=== PATIENT | female | born 1930 | race African-American/Black ===

== ENCOUNTER 2016-11-10 10:40 | Observation (INO) | payer MEDICARE ==
[~2016-11-10 10:40] MED LIST: BENZ100 PO; DOCU1CAP39 PO; HYDR-3580 PO; IBUP400 PO; LORTA5 PO; METO25 PO; POLY119S PO; PROT40TA PO; TIMO1SOL6 OP; TRAM50TA PO
[2016-11-10 10:44] VITALS: BP 99/50; PULSE 60; RESP 20; TEMP 97.8; O2SAT 98
[2016-11-10 11:05] VITALS: BP 107/51; PULSE 64; RESP 14; O2SAT 100
--- NOTE | 2016-11-10 11:31 | PD ---
HPI Chief Complaint: Respiratory Symptoms Time Seen by Provider: 11:26 Travel History International Travel<30 days: No Contact w/Intl Traveler<30days: No Traveled to known affect area: No History of Present Illness HPI Patient is a 86 year old female presenting to the emergency department evaluation of shortness of breath and lower extremity edema. Patient also complains of a lesion and itching to her right cheek. Son states that she's been evaluated by a fast food delivery driver the past and it was felt that it was psychological. However there has been increased swelling and redness to the area since yesterday. Patient states that the shortness of breath comes and goes, she states it was worse this morning. They recently traveled from [place] to check on their home here. She denies any calf pain or tenderness, fevers, chills, abdominal pain, chest pain. Patient has a medical history significant for congestive heart failure, hypertension, hyperlipidemia, and dementia. PFSH Past Medical History Arthritis: Yes Blood Disorders: No Heart Rhythm Problems: No Cancer: Yes (LEFT BREAST) Cardiac Catheterization: No High Cholesterol: Yes Congestive Heart Failure: Yes Coronary Artery Disease: Yes Dementia: Yes Diabetes: No Diminished Hearing: No Endocrine: No GERD: Yes Glaucoma: Yes Genitourinary: No Hepatitis: No Hiatal Hernia: No Hypertension: Yes Immune Disorder: No Neurologic: No Reproductive: No Respiratory: No Immunizations Current: Yes Myocardial Infarction: No Pancreatitis: Yes Radiation Therapy: Yes (H/O) Thyroid Disease: No ?: Not Menopausal: Yes Past Surgical History AICD: No Section: Yes Cholecystectomy: Yes Coronary Artery Bypass Graft: No Eye Surgery: Yes (GEETA. CATARACT SX.) Hysterectomy: Yes Joint Replacement: Yes (BOTH KNEES) Pacemaker: No Other Surgery: Yes (LEFT BREAST LUMPECTOMY) Social History Alcohol Use: No Tobacco Use: No Substance Use: No Allergies-Medications (Allergen,Severity, Reaction): Coded Allergies: Rosa (Verified Allergy, Severe, CAN'T RECALL, 11/10/16) Reported Meds & Prescriptions Reported Meds & Active Scripts Active [place] 5/325 (Hydrocodone/Acetaminophen 5/325) 5 mg/325 mg Tab 1 Tab PO Q6H PRN Motrin 400 mg Tab (Ibuprofen) 400 Mg Tab 400 Mg PO Q6H PRN Tessalon Perles (Benzonatate) 100 Mg Cap 200 Mg PO TID PRN 30 Days Hydrocodone/Acetaminophen 7.5 mg/325 mg 1 Tab 1 Tab PO Q4H PRN Tramadol Hcl (Tramadol HCl) 50 Mg Tab 50 Mg PO Q4H PRN Miralax 119 Gm Bottle (Polyethylene Glycol) 119 Gm Powd 17 Gm PO DAILY PRN 17 GRAMS = 1 TABLESPOON DISSOLVED IN 4 TO 8 OUNCES OF BEVERAGE Colace 100 Mg Cap (Docusate Sodium) 100 Mg Cap 100 Mg PO BID 30 Days Reported Protonix (Pantoprazole Sodium) 40 Mg Tabdr 40 Mg PO DAILY Betimol (Timolol Maleate) 0.25 % Bella 0.25 % OP DAILY Metoprolol Tartrate 25 mg (Metoprolol Tartrate) 25 Mg Tab 25 Mg PO BID Review of Systems Except as stated in HPI: all other systems reviewed are Neg Eyes: No: Visual changes HENT: No: Headaches Cardiovascular: Positive: Edema, No: Chest Pain or Discomfort Respiratory: Positive: Shortness of Breath Gastrointestinal: No: Nausea, Vomiting, Abdominal Pain Skin: Positive Itching, Positive Lesions Neurologic: No: Weakness, Dizziness, Syncope, Focal Abnormalities, Change in Mentation Physical Exam Narrative GENERAL: Overweight, well-developed, alert female. Resting in no acute distress. SKIN: Warm and dry. HEAD: Atraumatic. Normocephalic. EYES: Pupils equal and round. No scleral icterus. No injection or drainage. ENT: No nasal bleeding or discharge. Mucous membranes pink and moist. NECK: Trachea midline. No JVD. CARDIOVASCULAR: Regular rate and rhythm. RESPIRATORY: No accessory muscle use. Clear to auscultation. Breath sounds equal bilaterally. GASTROINTESTINAL: Abdomen soft, non-tender, nondistended. Hepatic and splenic margins not palpable. MUSCULOSKELETAL: Extremities without clubbing, cyanosis, trace edema noted to the left foot. No obvious deformities. Positive pedal pulses, negative Homans sign bilaterally. NEUROLOGICAL: Awake and alert. No obvious cranial nerve deficits. Motor grossly within normal limits. Five out of 5 muscle strength in the arms and legs. Normal speech. PSYCHIATRIC: Appropriate mood and affect; insight and judgment normal. Data Data Last Documented VS Vital Signs Date Time Temp Pulse Resp B/P Pulse Ox O2 Delivery O2 Flow Rate FiO2 11/10/16 11:05 64 14 107/51 100 Room Air 11/10/16 10:44 97.8 Orders Complete Blood Count With Diff (11/10/16 11:16) Comprehensive Metabolic Panel (11/10/16 11:16) B-Type Natriuretic Peptide (11/10/16 11:16) Act Partial Throm Time (Ptt) (11/10/16 11:16) Prothrombin Time / Inr (Pt) (11/10/16 11:16) Magnesium (Mg) (11/10/16 11:16) Ckmb (Isoenzyme) Profile (11/10/16 11:16) Troponin I (11/10/16 11:16) Iv Access Insert/Monitor (11/10/16 11:16) Electrocardiogram (11/10/16 11:16) Ecg Monitoring (11/10/16 11:16) Oximetry (11/10/16 11:16) Oxygen Administration (11/10/16 11:16) Chest, Single Ap (11/10/16 11:16) Sodium Chloride 0.9% Flush (Ns Flush) (11/10/16 11:30) Wound Culture And Gram Stain (11/10/16 11:16) Diet Heart Healthy (11/10/16 Lunch) Vital Signs (Adult) KJ.Q4H (11/10/16 13:58) Basic Metabolic Panel (Bmp) (11/11/16 06:00) Ondansetron Inj (Zofran Inj) (11/10/16 14:00) Acetaminophen (Tylenol) (11/10/16 14:00) Resp Oxygen David C Titrat 1-4 L (11/10/16 ) Admit Order (Ed Use Only) (11/10/16 14:00) Sulfamet-Trimeth Ds 800-160 Mg (Bactrim (11/10/16 14:00) Mupirocin 2% Oint (Bactroban 2% Oint) (11/10/16 14:00) Labs Laboratory Tests Test 11/10/16 11:55 White Blood Count 7.0 TH/MM3 Red Blood Count 4.30 MIL/MM3 Hemoglobin 11.9 GM/DL Hematocrit 35.9 % Mean Corpuscular Volume 83.4 FL Mean Corpuscular Hemoglobin 27.8 PG Mean Corpuscular Hemoglobin 33.3 % Concent Red Cell Distribution Width 14.9 % Platelet Count 185 TH/MM3 Mean Platelet Volume 8.2 FL Neutrophils (%) (Auto) 78.6 % Lymphocytes (%) (Auto) 10.4 % Monocytes (%) (Auto) 8.7 % Eosinophils (%) (Auto) 1.7 % Basophils (%) (Auto) 0.6 % Neutrophils # (Auto) 5.5 TH/MM3 Lymphocytes # (Auto) 0.7 TH/MM3 Monocytes # (Auto) 0.6 TH/MM3 Eosinophils # (Auto) 0.1 TH/MM3 Basophils # (Auto) 0.0 TH/MM3 CBC Comment DIFF FINAL Differential Comment Prothrombin Time 11.4 SEC Prothromb Time International 1.0 RATIO Ratio Activated Partial 28.5 SEC Thromboplast Time Sodium Level 141 MEQ/L Potassium Level 4.0 MEQ/L Chloride Level 103 MEQ/L Carbon Dioxide Level 27.7 MEQ/L Anion Gap 10 MEQ/L Blood Urea Nitrogen 42 MG/DL Creatinine 1.86 MG/DL Estimat Glomerular Filtration 31 ML/MIN Rate Random Glucose 95 MG/DL Calcium Level 9.2 MG/DL Magnesium Level 2.0 MG/DL Total Bilirubin 0.7 MG/DL Aspartate Amino Transf 19 U/L (AST/SGOT) Alanine Aminotransferase 12 U/L (ALT/SGPT) Alkaline Phosphatase 87 U/L Total Creatine Kinase 78 U/L Troponin I 0.26 NG/ML B-Type Natriuretic Peptide 607 PG/ML Total Protein 7.5 GM/DL Albumin 3.0 GM/DL MDM Medical Decision Making Medical Screen Exam Complete: Yes Emergency Medical Condition: Yes Interpretation(s) Last Impressions Chest X-Ray 11/10/16 1116 Signed Impressions: Service Date/Time: Thursday, November 10, 2016 11:29 - CONCLUSION: Mild cardiomegaly. Onel Long Jr., MD Laboratory Tests Test 11/10/16 11:55 White Blood Count 7.0 TH/MM3 Red Blood Count 4.30 MIL/MM3 Hemoglobin 11.9 GM/DL Hematocrit 35.9 % Mean Corpuscular Volume 83.4 FL Mean Corpuscular Hemoglobin 27.8 PG Mean Corpuscular Hemoglobin 33.3 % Concent Red Cell Distribution Width 14.9 % Platelet Count 185 TH/MM3 Mean Platelet Volume 8.2 FL Neutrophils (%) (Auto) 78.6 % Lymphocytes (%) (Auto) 10.4 % Monocytes (%) (Auto) 8.7 % Eosinophils (%) (Auto) 1.7 % Basophils (%) (Auto) 0.6 % Neutrophils # (Auto) 5.5 TH/MM3 Lymphocytes # (Auto) 0.7 TH/MM3 Monocytes # (Auto) 0.6 TH/MM3 Eosinophils # (Auto) 0.1 TH/MM3 Basophils # (Auto) 0.0 TH/MM3 CBC Comment DIFF FINAL Differential Comment Prothrombin Time 11.4 SEC Prothromb Time International 1.0 RATIO Ratio Activated Partial 28.5 SEC Thromboplast Time Sodium Level 141 MEQ/L Potassium Level 4.0 MEQ/L Chloride Level 103 MEQ/L Carbon Dioxide Level 27.7 MEQ/L Anion Gap 10 MEQ/L Blood Urea Nitrogen 42 MG/DL Creatinine 1.86 MG/DL Estimat Glomerular Filtration 31 ML/MIN Rate Random Glucose 95 MG/DL Calcium Level 9.2 MG/DL Magnesium Level 2.0 MG/DL Total Bilirubin 0.7 MG/DL Aspartate Amino Transf 19 U/L (AST/SGOT) Alanine Aminotransferase 12 U/L (ALT/SGPT) Alkaline Phosphatase 87 U/L Total Creatine Kinase 78 U/L Troponin I 0.26 NG/ML B-Type Natriuretic Peptide 607 PG/ML Total Protein 7.5 GM/DL Albumin 3.0 GM/DL Vital Signs Date Time Temp Pulse Resp B/P Pulse Ox O2 Delivery O2 Flow Rate FiO2 11/10/16 11:05 64 14 107/51 100 Room Air 11/10/16 10:44 97.8 60 20 99/50 98 Room Air Differential Diagnosis Congestive heart failure versus dependent edema versus abscess versus cellulitis versus impetigo versus other Narrative Course Patient is an 86 -year-old female presenting for evaluation of shortness of breath and bilateral lower extremity edema. Additionally she complained of a lesion to the right face that has gotten worse over the last 24 hours. Patient is a history of dementia, some corroborates her story regarding the skin lesion. Patient's vital signs are stable, she is well oxygenated on room air. There is trace edema noted to his left foot, negative Homans sign bilaterally. Patient's lungs are clear auscultation. We'll I&D the abscess to her left cheek. Cultures ordered. Please see procedure report I&D. Patient was given a dose of Bactrim and mupirocin ointment was ordered., Patient has several scabbed lesions to the side of her right scalp, this appears most consistent with impetigo. CBC is unremarkable, troponin 0.26, BNP 607, BUN and creatinine elevated 42/ 1.86. Chest x-ray shows cardiomegaly. Due to the elevated troponin and BNP patient will be kept under observation. Discussed with Dr. Jimenez who accepted admission, orders placed. Patient and son agreeable. Procedures Procedure Narrative After the risks and benefits were discussed the following procedure was performed: INCISION AND DRAINAGE OF ABSCESS: The area was prepped and was sterilely draped. A subcutaneous wheal of 1 % Xylocaine with a total number 1 mL was used to anesthetize the area. The area was properly anesthetized. A number 11 scalpel was used to make a 1 -cm incision across the area of the abscess. Cultures were obtained. The abscess was drained an irrigated with normal saline. A single Vicryl suture was placed to approximate incision. Diagnosis Primary Impression: CHF (congestive heart failure) Qualified Code: I50.9 - Congestive heart failure, unspecified congestive heart failure chronicity, unspecified congestive heart failure type Additional Impressions: Impetigo Abscess Status post incision and drainage Admitting Information Admitting Physician Requests: Observation Condition: Stable Irasema Cadet Nov 10, 2016 11:31
[2016-11-10 12:35] LABS: AUTOMATED NEUTROPHIL # 5.5 TH/MM3 (1.8-7.7); BASOPHIL % 0.6 % (0.0-2.0); EOSINOPHIL # 0.1 TH/MM3 (0-0.4); EOSINOPHIL % 1.7 % (0.0-4.0); HEMATOCRIT 35.9 % (35.0-46.0); HEMO FLAGS DIFF FINAL; LYMPH % 10.4 % (9.0-44.0); LYMPHOCYTE # 0.7 TH/MM3 (1.0-4.8); MEAN CELL VOLUME 83.4 FL (80.0-100.0); MEAN CORPUSCULAR HEMOGLOBIN 27.8 PG (27.0-34.0); MEAN CORPUSCULAR HGB CONC 33.3 % (32.0-36.0); MONO % 8.7 % (0.0-8.0); NEUT % 78.6 % (16.0-70.0); PLATELET COUNT 185 TH/MM3 (150-450); RED CELL DISTRIBUTION WIDTH 14.9 % (11.6-17.2)
[2016-11-10 12:46] LABS: APTT (PATIENT) 28.5 SEC (24.3-30.1); PROTHROMBIN TIME - PATIENT 11.4 SEC (9.8-11.6)
--- NOTE | 2016-11-10 12:46 | RADRPT ---
EXAM DATE/TIME: 11/10/2016 11:29 [facility] COMPARISON: CHEST SINGLE AP, January 26, 2015, 11:04. INDICATIONS : Short of breath. MEDICAL HISTORY : None. SURGICAL HISTORY : None. ENCOUNTER: Initial ACUITY: 2 days PAIN SCORE: 0/10 LOCATION: Bilateral chest FINDINGS: A single view of the chest demonstrates the lungs to be symmetrically aerated without evidence of mas s, infiltrate or effusion. Mild cardiomegaly without pulmonary vascular engorgement. Osseous structu res are intact. CONCLUSION: Mild cardiomegaly. Onel Long Jr., MD on November 10, 2016 at 12:44 Board Certified Radiologist. This report was verified electronically.
[2016-11-10 12:58] LABS: ALT (GPT) 12 U/L (10-53); ANION GAP 10 MEQ/L (5-15); AST (GOT) 19 U/L (15-37); BICARBONATE 27.7 MEQ/L (21.0-32.0); BLOOD UREA NITROGEN 42 MG/DL (7-18); CHLORIDE 103 MEQ/L (98-107); GLOMERULAR FILTRATION RATE 31 ML/MIN (>89); SODIUM (NA) 141 MEQ/L (136-145)
[2016-11-10 13:01] LABS: ALKALINE PHOSPHATASE 87 U/L (45-117); TOTAL BILIRUBIN ADULT 0.7 MG/DL (0.2-1.0)
[2016-11-10 13:02] LABS: CREATINE KINASE 78 U/L (26-192)
[2016-11-10] MEDS ORDERED: ONDANSETRON HCL 4 MG/2 ML VIAL IV PUSH PRN (14:00)
[2016-11-10] MEDS ORDERED: ACETAMINOPHEN 325 MG TAB PO PRN (14:00)
[2016-11-10] MEDS ORDERED: SULFAMETHOXAZOLE-TRIMETHOPRIM DS 800-160 MG TAB PO ONE (14:00)
--- NOTE | 2016-11-10 14:23 | HHI.HP ---
[facility]Staff Admission Diagnosis CHF, KALA, ELEVATED TROPONIN Diagnoses: (1) CHF (congestive heart failure) Diagnosis: Principal Chief Complaint: shortness of breath Travel History International Travel<30 Days: No Contact w/Intl Traveler <30 Da: No Traveled to Known Affected Are: No History of Present Illness patient is a 86 y/o female with history of hypertension and CHF who presented to ER with sob and swelling of the legs. patient is not a good historian but she says that she's had this sob for a while. she denies any PND,orthopnea or chest pain but she reports worsening swelling of the legs along with ' some weight gain. she also says that she had a lesion on the right face which has been going on for a few months but it seems that it's been getting worse recently. she denies any fever or chills. Review of Systems Constitutional: DENIES: Fever, Weight loss, Chills, Night Sweats Eyes: DENIES: Blurred vision, Diplopia, Vision loss, Double Vision Ears, nose, mouth, throat: DENIES: Tinnitus, Vertigo, Throat pain, Epistaxis Respiratory: COMPLAINS OF: Shortness of breath, DENIES: Apneas, Cough, Snoring , Wheezing, Hemoptysis, Sputum production Cardiovascular: COMPLAINS OF: Lower Extremity Edema, DENIES: Chest pain, Palpitations, Syncope, Dyspnea on Exertion, PND, Orthopnea, Claudication Gastrointestinal: DENIES: Abdominal pain, Black stools, Bloody stools, Constipation, Diarrhea, Nausea, Vomiting, Difficulty Swallowing, Anorexia Genitourinary: DENIES: Urinary frequency, Urgency, Hematuria, Dysuria Musculoskeletal: DENIES: Joint pain, Muscle aches, Stiffness, Joint Swelling Integumentary: DENIES: Rash Neurologic: DENIES: Abnormal gait, Headache, Localized weakness, Paresthesias, Seizures, Speech Problems, Tremor, Poor Balance Psychiatric: DENIES: Anxiety, Confusion, Mood changes, Depression, Hallucinations, Agitation, Suicidal Ideation, Homicidal Ideation, Delusions Past Family Social History Past Medical History hypertension cataract CHF Past Surgical History cholecystectomy hysterectomy Reported Medications [place] 5/325 (Hydrocodone/Acetaminophen 5/325) 5 mg/325 mg Tab 1 Tab PO Q6H PRN Motrin 400 mg Tab (Ibuprofen) 400 Mg Tab 400 Mg PO Q6H PRN Tessalon Perles (Benzonatate) 100 Mg Cap 200 Mg PO TID PRN 30 Days Hydrocodone/Acetaminophen 7.5 mg/325 mg 1 Tab 1 Tab PO Q4H PRN Tramadol Hcl (Tramadol HCl) 50 Mg Tab 50 Mg PO Q4H PRN Miralax 119 Gm Bottle (Polyethylene Glycol) 119 Gm Powd 17 Gm PO DAILY PRN 17 GRAMS = 1 TABLESPOON DISSOLVED IN 4 TO 8 OUNCES OF BEVERAGE Colace 100 Mg Cap (Docusate Sodium) 100 Mg Cap 100 Mg PO BID 30 Days Reported Protonix (Pantoprazole Sodium) 40 Mg Tabdr 40 Mg PO DAILY Betimol (Timolol Maleate) 0.25 % Bella 0.25 % OP DAILY Metoprolol Tartrate 25 mg (Metoprolol Tartrate) 25 Mg Tab 25 Mg PO BID Allergies: Coded Allergies: Rosa (Verified Allergy, Severe, CAN'T RECALL, 11/10/16) Active Ordered Medications Current Medications Sodium Chloride (NS Flush) 2 ml UNSCH PRN IVF FLUSH AFTER USING IV ACCESS; Start 11/10/16 at 11:30 Ondansetron HCl (Zofran Inj) 4 mg Q8HR PRN IV PUSH NAUSEA; Start 11/10/16 at 14 :00; Status UNV Acetaminophen (Tylenol) 650 mg Q4H PRN PO FEVER; Start 11/10/16 at 14:00; Status UNV Trimethoprim/ Sulfamethoxazole (Bactrim Ds 800-160 Mg) 1 tab ONCE ONCE PO ; Start 11/10/16 at 14:00; Stop 11/10/16 at 14:04; Status DC Mupirocin (Bactroban 2% Oint) 1 applic Q12HR TOPICAL ; Start 11/10/16 at 14:00 Family History not relevant to this admission. Social History quit smoking and drinking years ago. Physical Exam Vital Signs Vital Signs Date Time Temp Pulse Resp B/P Pulse Ox O2 Delivery O2 Flow Rate FiO2 11/10/16 11:05 64 14 107/51 100 Room Air 11/10/16 10:44 97.8 60 20 99/50 98 Room Air Physical Exam GENERAL: This is a well-nourished, well-developed patient, in no apparent distress. SKIN: s/p I/D of the lesion on the right face HEAD: Atraumatic. Normocephalic. No temporal or scalp tenderness. EYES: Pupils equal round and reactive. Extraocular motions intact. No scleral icterus. No injection or drainage. ENT: Nose without bleeding, purulent drainage or septal hematoma. Throat without erythema, tonsillar hypertrophy or exudate. Uvula midline. Airway patent. NECK: Trachea midline. No JVD or lymphadenopathy. Supple, nontender, no meningeal signs. CARDIOVASCULAR: Regular rate and rhythm without murmurs, gallops, or rubs. RESPIRATORY: Clear to auscultation. Breath sounds equal bilaterally. No wheezes , rales, or rhonchi. GASTROINTESTINAL: Abdomen soft, non-tender, nondistended. No hepato-splenomegaly , or palpable masses. No guarding. MUSCULOSKELETAL: Extremities with bilateral pedal edema. NEUROLOGICAL: Awake and alert. Cranial nerves II through XII intact. Motor and sensory grossly within normal limits. Five out of 5 muscle strength in all muscle groups. Normal speech. Laboratory Laboratory Tests Test 11/10/16 11:55 White Blood Count 7.0 Red Blood Count 4.30 Hemoglobin 11.9 Hematocrit 35.9 Mean Corpuscular Volume 83.4 Mean Corpuscular Hemoglobin 27.8 Mean Corpuscular Hemoglobin 33.3 Concent Red Cell Distribution Width 14.9 Platelet Count 185 Mean Platelet Volume 8.2 Neutrophils (%) (Auto) 78.6 Lymphocytes (%) (Auto) 10.4 Monocytes (%) (Auto) 8.7 Eosinophils (%) (Auto) 1.7 Basophils (%) (Auto) 0.6 Neutrophils # (Auto) 5.5 Lymphocytes # (Auto) 0.7 Monocytes # (Auto) 0.6 Eosinophils # (Auto) 0.1 Basophils # (Auto) 0.0 CBC Comment DIFF FINAL Differential Comment Prothrombin Time 11.4 Prothromb Time International 1.0 Ratio Activated Partial 28.5 Thromboplast Time Sodium Level 141 Potassium Level 4.0 Chloride Level 103 Carbon Dioxide Level 27.7 Anion Gap 10 Blood Urea Nitrogen 42 Creatinine 1.86 Estimat Glomerular Filtration 31 Rate Random Glucose 95 Calcium Level 9.2 Magnesium Level 2.0 Total Bilirubin 0.7 Aspartate Amino Transf 19 (AST/SGOT) Alanine Aminotransferase 12 (ALT/SGPT) Alkaline Phosphatase 87 Total Creatine Kinase 78 Troponin I 0.26 B-Type Natriuretic Peptide 607 Total Protein 7.5 Albumin 3.0 Date/Time Procedure Status Source Growth 11/10/16 12:12 Gram Stain Received Wound Face Pending 11/10/16 12:12 Wound Culture Received Wound Face Pending Result Diagram: 11/10/16 1155 11/10/16 1155 Imaging Last Impressions Chest X-Ray 11/10/16 1116 Signed Impressions: Service Date/Time: Thursday, November 10, 2016 11:29 - CONCLUSION: Mild cardiomegaly. Onel Long Jr., MD EKG; sinus bradycardia with LAD Assessment and Plan Assessment and Plan A/P - CHF- acute on chronic diastolic start IV diuretic and monitor I/O- check echo- -mildly elevated troponin- likely due to CHF and renal insufficiency- denies any chest pain with no ST-T changes on EKG start aspirin-trend the cardiac enzymes- continue BB -abscess of the right face- s/p I/D in ER- check soft tissue sonogram- continue antibiotic- follow the culture -hypertension; resume BB- will monitor -renal insufficiency - likely chronic - will monitor -DVT prophylaxis with SCD's -consult PT Discussed Condition With ER and the patient. Problem Qualifiers (1) CHF (congestive heart failure): Qualified Code: I50.9 - Congestive heart failure, unspecified congestive heart failure chronicity, unspecified congestive heart failure type Bree Jimenez MD Nov 10, 2016 14:23
[2016-11-10] MEDS: MUPIROCIN 2% OINT 22 GM TUBE TOPICAL SCH ×2 (14:55→23:11)
[2016-11-10 14:59] VITALS: BP 125/78; PULSE 67; RESP 20; O2SAT 100
--- NOTE | 2016-11-10 15:34 | RADRPT ---
EXAM DATE/TIME: 11/10/2016 14:22 [facility] COMPARISON: No previous studies available for comparison. INDICATIONS : Abscess right side of face. MEDICAL HISTORY : Dementia. Congestive heart failure. Hypercholesterolemia. HTN. Pancreatitis. Breast cancer. Dyspnea. Glaucoma. Coronary artery disease. Arthritis.GERD. SURGICAL HISTORY : Hysterectomy. section. Cholecystectomy. Bilateral total knee replacement. Lumpectomy. ENCOUNTER: Initial ACUITY: 2 weeks PAIN SCORE: 2/10 LOCATION: Right face. AREA EVALUATED: Right lateral side of face. FINDINGS: The exam demonstrates an ill-defined fluid collection measuring 1.8 x 1.9-0.7 CM. The appropriate cli nical setting this could represent a small area of abscess. There is induration of the tissue surroun ding this. CONCLUSION: 1. Possible small abscess in the right face as described above. Néstor Carrillo MD on November 10, 2016 at 15:03 Board Certified Radiologist. This report was verified electronically.
--- NOTE | 2016-11-10 16:16 | EKG ---
Date Performed: 11/10/2016 Time Performed: 11:29:14 PTAGE: 86 years EKG: SINUS BRADYCARDIA MARKED LEFT AXIS DEVIATION NONSPECIFIC T-WAVE ABNORMALITY ABNORMAL ECG PREVIOUS TRACING : 01/26/2015 09.33 Compared to prior tracing no significant change DOCTOR: Enrrique Garcia Interpretating Date/Time 11/10/2016 16:15:27
[2016-11-10] MEDS: ASPIRIN EC 81 MG TABEC PO SCH (16:21)
[2016-11-10] MEDS: POTASSIUM CHLORIDE 20 MEQ CONTROLLED RELEASE TAB PO SCH (16:21)
[2016-11-10] MEDS: FUROSEMIDE 40 MG/4 ML VIAL IV PUSH SCH (16:21)
[2016-11-10] MEDS ORDERED: CLINDAMYCIN 150 MG CAP PO SCH (18:00)
[2016-11-10] MEDS: CLINDAMYCIN INJ 600 MG in SODIUM CHLORIDE 0.9% INJ 100 ML IV SCH (18:26)
--- NOTE | 2016-11-10 20:54 | RADRPT ---
EXAM DATE/TIME: 11/10/2016 20:00 [facility] COMPARISON: ULTRASOUND SOFT TISSUE, November 10, 2016, 14:22. INDICATIONS : Evaluate abscess looking area infront of right ear. RADIATION DOSE: 56.76 CTDIvol (mGy) MEDICAL HISTORY : Dementia. Cardiovascular disease Hypertension.Pancreatitis,breast ca SURGICAL HISTORY : Hysterectomy. lumpectomy ENCOUNTER: Initial ACUITY: 3 days PAIN SCORE: 3/10 LOCATION: Right facial TECHNIQUE: Volumetric scanning of the facial bones was performed. Using automated exposure control and adjustme nt of the mA and/or kV according to patient size, radiation dose was kept as low as reasonably achiev able to obtain optimal diagnostic quality images. DICOM format image data is available electronicall y for review and comparison. FINDINGS: Study was done without intravenous contrast. There is induration over the right face with very minim al subcutaneous induration evident. This does not look as bad as the ultrasound would suggest. There is no significant adenopathy. CONCLUSION: There is no significant abscess by CT in spite of the ultrasound findings. Surjit Carrillo MD FACR on November 10, 2016 at 20:50 Board Certified Radiologist. This report was verified electronically.
[2016-11-10] MEDS: METOPROLOL TARTRATE 25 MG TAB PO SCH (21:48)
[2016-11-11] VITALS (7 sets, daily range): BP systolic 90–120; BP diastolic 53–69; PULSE 54–68; RESP 14–18; TEMP 97.5–98.6; O2SAT 96–100
[2016-11-11] MEDS: CLINDAMYCIN INJ 600 MG in SODIUM CHLORIDE 0.9% INJ 100 ML IV SCH ×3 (01:54→17:33)
--- NOTE | 2016-11-11 08:30 | MB ---
cc: KATINA GLASGOW DMD DATE OF CONSULTATION: November 10, 2016 REASON FOR CONSULTATION Edema right face. HISTORY OF PRESENT ILLNESS This is an 86-year-old pleasant female who presented to the ER with complaint of shortness of breath and swelling to the legs. But also she indicates to me now that she has this lesion area edema on the right side of her face which has been there for about a month. She reports that it has been recently incised and drained. Denies any fever, chills, nausea, vomiting, shortness of breath and difficulty breathing or swallowing. PAST MEDICAL HISTORY Past medical history is hypertension and congestive heart failure. PAST SURGICAL HISTORY Past surgical history is hysterectomy, cholecystectomy. MEDICATIONS As per report: 1. Colace. 2. MiraLax. 3. Tramadol. 4. Hydrocodone. 5. Tessalon. 6. Motrin 800 mg. 7. Lake 5/325. 8. Protonix. 9. Betimol. 10. Metoprolol. ALLERGIES CALAN. PHYSICAL EXAMINATION VITAL SIGNS: As of this morning temperature is 97.8, pulse is 67, respiratory rate 20, blood pressure is 125/70 with oxygen saturation of 100%. She has a dressing on the right side of the face region anterior to the temporomandibular joint right on the zygomatic arch. This area has slightly mild edema mostly covered by normal mucosa, brownish in color, round, well-circumscribed, mildly raised. I can see the area where the incision was made for the incision drainage. There is no active drainage that is noted at this point. A little crusty appearance that was also noted on there. No tenderness to palpation. No drainable collection that I can palpate at this point. It is about a centimeter and half round. She also has some scabs on the right supraorbital region. She reports that she has been getting creams to treat all these from a doctor, possibly a machine taper. LABORATORY DATA White count is 7.0 with an H&H of 11.9 and 35.5 with platelets of 185. IMAGING STUDIES Awaiting for the CT scan of the facial bones to be done. IMPRESSION AND PLAN This is a 86-year-old female, with at least a one month history of this area, some edema on the right zygomatic arch region towards the temporomandibular joint, is well-circumscribed. There is I&D this afternoon in the ED. Cultures are pending. We will await for the CT scan of the facial bones to evaluate further. Differential diagnosis could be infectious versus neoplastic, possible basal cell carcinoma versus any other malignancy, possible MRSA. No ulcerations that is noted on that. No white count. She is comfortable and stable at this point. Katina Glasgow DMD TREER/TLL /7:41 PM /8:14 AM
[2016-11-11 08:39] LABS: BICARBONATE 28.4 MEQ/L (21.0-32.0)
[2016-11-11] MEDS ORDERED: TIMOLOL 0.25% OTHER SCH (09:00)
[2016-11-11] MEDS: FUROSEMIDE 40 MG/4 ML VIAL IV PUSH SCH (09:02)
[2016-11-11] MEDS: ASPIRIN EC 81 MG TABEC PO SCH (09:02)
[2016-11-11] MEDS: SODIUM CHLORIDE 0.9% FLUSH 10 ML FLUSH IVF PRN (09:02)
[2016-11-11] MEDS: MUPIROCIN 2% OINT 22 GM TUBE TOPICAL SCH ×2 (09:02→22:21)
[2016-11-11] MEDS: METOPROLOL TARTRATE 25 MG TAB PO SCH ×2 (09:02→21:43)
[2016-11-11] MEDS: PANTOPRAZOLE SOD 40 MG DELAYED RELEASE TAB PO SCH (09:02)
[2016-11-11] MEDS: POTASSIUM CHLORIDE 20 MEQ CONTROLLED RELEASE TAB PO SCH (09:02)
--- NOTE | 2016-11-11 09:47 | HHI.PR ---
Subjective Remarks resting comfortably with no distress. no sob. swelling of the legs seems to be improving. no fever. no other complaints. Objective Vitals Vital Signs Date Time Temp Pulse Resp B/P Pulse Ox O2 Delivery O2 Flow Rate FiO2 11/11/16 08:51 97.5 68 18 111/60 100 11/11/16 07:45 21 11/11/16 03:53 97.8 54 17 90/53 98 11/11/16 00:45 98.6 57 17 101/58 96 11/10/16 17:05 21 11/10/16 14:59 67 20 125/78 100 Room Air 11/10/16 11:05 64 14 107/51 100 Room Air 11/10/16 10:44 97.8 60 20 99/50 98 Room Air Result Diagram: 11/10/16 1155 11/11/16 0712 Imaging Last Impressions Chest X-Ray 11/10/16 1116 Signed Impressions: Service Date/Time: Thursday, November 10, 2016 11:29 - CONCLUSION: Mild cardiomegaly. Onel Long Jr., MD Soft Tissue Ultrasound 11/10/16 0000 Signed Impressions: Service Date/Time: Tuesday, November 10, 2016 14:22 - CONCLUSION: 1. Possible small abscess in the right face as described above. Néstor Carrillo MD Maxillofacial CT 11/10/16 0000 Signed Impressions: Service Date/Time: Thursday, November 10, 2016 20:00 - CONCLUSION: There is no significant abscess by CT in spite of the ultrasound findings. Surjit Carrillo MD FACR Objective Remarks GENERAL: This is a well-nourished, well-developed patient, in no apparent distress. CARDIOVASCULAR: Regular rate and regular rhythm without murmurs, gallops, or rubs. RESPIRATORY: Clear to auscultation. Breath sounds equal bilaterally. No wheezes , rales, or rhonchi. GASTROINTESTINAL: Abdomen soft, non-tender, nondistended. Normal, active bowel sounds MUSCULOSKELETAL: Extremities with mild bilateral pedal edema. NEURO: Alert & Oriented x4 to person, place, time, situation. Moves all ext x4 Procedures none Medications and IVs Current Medications Sodium Chloride (NS Flush) 2 ml UNSCH PRN IVF FLUSH AFTER USING IV ACCESS Last administered on 11/11/16t 09:02; Start 11/10/16 at 11:30 Ondansetron HCl (Zofran Inj) 4 mg Q8HR PRN IV PUSH NAUSEA; Start 11/10/16 at 14 :00 Acetaminophen (Tylenol) 650 mg Q4H PRN PO FEVER; Start 11/10/16 at 14:00 Trimethoprim/ Sulfamethoxazole (Bactrim Ds 800-160 Mg) 1 tab ONCE ONCE PO Last administered on 11/10/16 14:43; Start 11/10/16 at 14:00; Stop 11/10/16 at 14:04; Status DC Mupirocin (Bactroban 2% Oint) 1 applic Q12HR TOPICAL Last administered on 09:02; Start 11/10/16 at 14:00 Furosemide (Lasix Inj) 40 mg DAILY IV PUSH Last administered on 11/11/16 09:02 ; Start 11/10/16 at 15:00 Potassium Chloride (KCl) 20 meq DAILY PO Last administered on 11/11/16 09:02; Start 11/10/16 at 15:00 Metoprolol Tartrate (Lopressor) 25 mg BID PO Last administered on 11/11/16 09: 02; Start 11/10/16 at 21:00 Pantoprazole Sodium (Protonix) 40 mg DAILY PO Last administered on 11/11/16 09 :02; Start 11/11/16 at 09:00 Patient Own Medication PT OWN MED: DOROTHY... DAILY OTHER ; Start 11/11/16 at 09:00 ; Status Hold Clindamycin HCl (Cleocin) 300 mg Q6HR PO ; Start 11/10/16 at 18:00; Stop at 18:00; Status DC Aspirin 162 mg 162 mg DAILY PO Last administered on 11/11/16 09:02; Start 04/17 at 15:00 Clindamycin Phosphate/Sodium Chloride (Cleocin Inj/NS Inj) 104 ml @ 208 mls/hr Q8H IV Last administered on 11/11/16 01:54; Start 11/10/16 at 18:00 A/P Assessment and Plan A/P - CHF- acute on chronic diastolic continue IV diuretic and monitor I/O- check echo- -mildly elevated troponin- likely due to CHF and renal insufficiency- denies any chest pain with no ST-T changes on EKG start aspirin- the cardiac enzymes trend stable- continue BB -abscess of the right face- s/p I/D in ER- continue antibiotic- follow the culture CT of the face with no abscess- facial surgery evaluation appreciated. -hypertension; resumed BB- will monitor -renal insufficiency - likely chronic - will monitor -DVT prophylaxis with SCD's -consulted PT Discharge Planning possible dc home tomorrow if stable-pending the echo and PT evaluation. Bree Jimenez MD Nov 11, 2016 09:47
--- NOTE | 2016-11-11 19:49 | HHI.PR ---
Subjective Remarks pt seen and examined earlier this evening AAOx3, NAD no complaints pt has removed her wig and keeps scratching various areas of would/scabs on her head, especially her right side pt reports areas of head/face been there for a long time Objective Vital Signs Date Time Temp Pulse Resp B/P Pulse Ox O2 Delivery O2 Flow Rate FiO2 11/11/16 14:51 98.0 60 16 120/69 100 11/11/16 11:30 98.4 56 14 114/57 96 11/11/16 08:51 97.5 68 18 111/60 100 11/11/16 07:45 21 11/11/16 03:53 97.8 54 17 90/53 98 11/11/16 00:45 98.6 57 17 101/58 96 I/O 11/10/16 11/10/16 11/10/16 11/11/16 11/11/16 11/11/16 07:00 15:00 23:00 07:00 15:00 23:00 Intake Total 1228 ml 458 ml Balance 1228 ml 458 ml Intake Oral 960 ml 240 ml IV Total 268 ml 218 ml # Voids 4 1 # Bowel Movements 1 1 Result Diagram: 11/10/16 1155 11/11/16 0712 Other Results GRAM STAIN Final 11/10/16 MODERATE WBC'S FEW EPITHELIAL CELLS MODERATE GRAM POSITIVE COCCI IN PAIRS AND CLUSTERS WOUND CULTURE Preliminary 11/11/16 HEAVY GROWTH STAPH SP COAGULASE POSITIVE - ID AND LYSSA TO FOLLOW Objective Remarks right face, area over the zygomatic arch - stable no discharge noted previous i&d area stable, no tenderness, no drainable collection right scalp/head area of scabs/ old and new with area of skin missing - appears due to continued scratching, ct face - no drainable collection - area of opacity note -same area of previous i&d; well circumscribed - appears to be "walled off" Assessment and Plan Assessment and Plan s/p being admitted for sob, lesions, infection head face GRAM STAIN Final right face MODERATE WBC'S FEW EPITHELIAL CELLS MODERATE GRAM POSITIVE COCCI IN PAIRS AND CLUSTERS WOUND CULTURE Preliminary 11/11/16 HEAVY GROWTH STAPH SP COAGULASE POSITIVE - ID AND LYSSA TO FOLLOW ok to d/c to home from OMS standpoint pt can follow up dr glasgow - outpatient - call [phone] when discharged d/w dr godinez - possible infectious vs inflammatory condition advise dermatology consult, Infectious disease consult - possible, fungal, infectious, parasitic, areas oms signing off, recall as required. Vinh Glasgow DMD Nov 11, 2016 19:49
[2016-11-12] VITALS (8 sets, daily range): BP systolic 94–125; BP diastolic 55–64; PULSE 53–70; RESP 14–17; TEMP 97.8–98.9; O2SAT 96–100
[2016-11-12] MEDS: CLINDAMYCIN INJ 600 MG in SODIUM CHLORIDE 0.9% INJ 100 ML IV SCH ×2 (01:51→10:22)
[2016-11-12] MEDS: SODIUM CHLORIDE 0.9% FLUSH 10 ML FLUSH IVF PRN (01:51)
--- NOTE | 2016-11-12 09:42 | HHI.FF ---
Face to Face Verification Diagnosis: (1) Status post incision and drainage (2) CHF (congestive heart failure) Physical Therapy Order: Evaluate and Treat Home Health Nursing Order: Medical education Signs/symptoms of disease process I have seen patient Chloe Ritchie on 11/12/16. My clinical findings support the need for the requested home health care services because: Patient has SOB I certify that my clinical findings support that this patient is homebound because: Poor cardiac reserve Bree Jimenez MD Nov 12, 2016 09:42
--- NOTE | 2016-11-12 09:42 | HHI.PR ---
Subjective Remarks in no acute distress. no sob or chest pain. afebrile. complaining of pain to the left knee with decrease in ROM. Objective Vitals Vital Signs Date Time Temp Pulse Resp B/P Pulse Ox O2 Delivery O2 Flow Rate FiO2 11/12/16 08:48 98.5 65 16 125/59 96 11/12/16 05:10 98.3 61 17 105/62 99 11/12/16 00:14 98.0 62 17 110/64 99 11/11/16 20:26 98 11/11/16 19:49 98.6 65 18 111/54 100 11/11/16 14:51 98.0 60 16 120/69 100 11/11/16 11:30 98.4 56 14 114/57 96 I/O 11/11/16 11/11/16 11/11/16 11/12/16 11/12/16 11/12/16 07:00 15:00 23:00 07:00 15:00 23:00 Intake Total 1228 ml 558 ml 100 ml Balance 1228 ml 558 ml 100 ml Intake Oral 960 ml 340 ml IV Total 268 ml 218 ml 100 ml # Voids 4 2 1 # Bowel Movements 1 1 Result Diagram: 11/10/16 1155 11/11/16 0712 Imaging Last Impressions Chest X-Ray 11/10/16 1116 Signed Impressions: Service Date/Time: Thursday, November 10, 2016 11:29 - CONCLUSION: Mild cardiomegaly. Onel Long Jr., MD Soft Tissue Ultrasound 11/10/16 0000 Signed Impressions: Service Date/Time: Thursday, November 10, 2016 14:22 - CONCLUSION: 1. Possible small abscess in the right face as described above. Néstor Carrillo MD Maxillofacial CT 11/10/16 0000 Signed Impressions: Service Date/Time: Thursday, November 10, 2016 20:00 - CONCLUSION: There is no significant abscess by CT in spite of the ultrasound findings. Surjit Carrillo MD FACR Objective Remarks GENERAL: This is a well-nourished, well-developed patient, in no apparent distress. CARDIOVASCULAR: Regular rate and regular rhythm without murmurs, gallops, or rubs. RESPIRATORY: Clear to auscultation. Breath sounds equal bilaterally. No wheezes , rales, or rhonchi. GASTROINTESTINAL: Abdomen soft, non-tender, nondistended. Normal, active bowel sounds MUSCULOSKELETAL: Extremities with mild bilateral pedal edema. NEURO: Alert & Oriented x4 to person, place, time, situation. Moves all ext x4 Procedures I/D of the facial lesion Medications and IVs Current Medications Sodium Chloride (NS Flush) 2 ml UNSCH PRN IVF FLUSH AFTER USING IV ACCESS Last administered on 11/12/16 01:51; Start 11/10/16 at 11:30 Ondansetron HCl (Zofran Inj) 4 mg Q8HR PRN IV PUSH NAUSEA; Start 11/10/16 at 14 :00 Acetaminophen (Tylenol) 650 mg Q4H PRN PO FEVER; Start 11/10/16 at 14:00 Trimethoprim/ Sulfamethoxazole (Bactrim Ds 800-160 Mg) 1 tab ONCE ONCE PO Last administered on 11/10/16 14:43; Start 11/10/16 at 14:00; Stop 11/10/16 at 14:04; Status DC Mupirocin (Bactroban 2% Oint) 1 applic Q12HR TOPICAL Last administered on 22:21; Start 11/10/16 at 14:00 Furosemide (Lasix Inj) 40 mg DAILY IV PUSH Last administered on 11/11/16 09:02 ; Start 11/10/16 at 15:00 Potassium Chloride (KCl) 20 meq DAILY PO Last administered on 11/11/16 09:02; Start 11/10/16 at 15:00 Metoprolol Tartrate (Lopressor) 25 mg BID PO Last administered on 11/11/16 21: 43; Start 11/10/16 at 21:00 Pantoprazole Sodium (Protonix) 40 mg DAILY PO Last administered on 11/11/16 09 :02; Start 11/11/16 at 09:00 Patient Own Medication PT OWN MED: DOROTHY... DAILY OTHER ; Start 11/11/16 at 09:00 ; Status Hold Clindamycin HCl (Cleocin) 300 mg Q6HR PO ; Start 11/10/16 at 18:00; Stop at 18:00; Status DC Aspirin 162 mg 162 mg DAILY PO Last administered on 11/11/16 09:02; Start 04/17 at 15:00 Clindamycin Phosphate/Sodium Chloride (Cleocin Inj/NS Inj) 104 ml @ 208 mls/hr Q8H IV Last administered on 11/12/16t 01:51; Start 11/10/16 at 18:00 A/P Assessment and Plan A/P - CHF- acute on chronic diastolic continue IV diuretic and monitor I/O- echo to be followed up as outpatient. no LEONARDO-I due to renal insufficiency. -mildly elevated troponin- likely due to CHF and renal insufficiency- denies any chest pain with no ST-T changes on EKG continue aspirin- the cardiac enzymes trend stable- continue BB -abscess of the right face- s/p I/D in ER-culture with MRSA- continue antibiotic- CT of the face with no abscess- facial surgery evaluation appreciated. d/w ; recommended ID evaluation and f/u outpatient with facial surgery. ID consulted. -pain to the left knee with decrease in ROM; obtain XR -hypertension; resumed BB- will monitor -renal insufficiency - likely chronic - will monitor -DVT prophylaxis with SCD's -consulted PT Discharge Planning dc home with [facility]- pending echo. Bree Jimenez MD Nov 12, 2016 09:42
[2016-11-12] MEDS ORDERED: FURO1TAB62 PO (09:44)
[2016-11-12] MEDS: FUROSEMIDE 40 MG/4 ML VIAL IV PUSH SCH (09:55)
[2016-11-12] MEDS: METOPROLOL TARTRATE 25 MG TAB PO SCH ×2 (09:55→20:38)
[2016-11-12] MEDS: MUPIROCIN 2% OINT 22 GM TUBE TOPICAL SCH ×2 (09:55→20:39)
[2016-11-12] MEDS: POTASSIUM CHLORIDE 20 MEQ CONTROLLED RELEASE TAB PO SCH (09:55)
[2016-11-12] MEDS: PANTOPRAZOLE SOD 40 MG DELAYED RELEASE TAB PO SCH (09:55)
[2016-11-12] MEDS: ASPIRIN EC 81 MG TABEC PO SCH (09:55)
[2016-11-12] MEDS ORDERED: CLIN1CAP6 PO (12:59)
[2016-11-12] MEDS ORDERED: ASPI81TA11 PO (13:00)
--- NOTE | 2016-11-12 13:29 | RADRPT ---
EXAM DATE/TIME: 11/12/2016 12:52 [place] COMPARISON: No previous studies available for comparison. INDICATIONS : Pain with swelling with motion and weight bearing. MEDICAL HISTORY : Osteoarthritis. Congestive heart failure. SURGICAL HISTORY : Total knee replacement, left. ENCOUNTER: Initial ACUITY: 3 days PAIN SCORE: 8/10 LOCATION: Left knee. FINDINGS: 4 views of the left knee reveal a total hip prosthesis in good position. No fracture or dislocation. Tiny joint effusion. Soft tissues are unremarkable. CONCLUSION: Tiny joint effusion. No acute abnormality otherwise. Onel Long Jr., MD on November 12, 2016 at 13:26 Board Certified Radiologist. This report was verified electronically.
--- NOTE | 2016-11-12 14:26 | HHI.DS ---
Discharge Summary Admission Date Nov 10, 2016 at 14:01 Discharge Date: Nov 12, 2016 Admitting Diagnosis CHF, KALA, ELEVATED TROPONIN (1) CHF (congestive heart failure) ICD Code: I50.9 Diagnosis: Principal Procedures I/D of the facial lesion Brief History - From Admission patient is a 86 y/o female with history of hypertension and CHF who presented to ER with sob and swelling of the legs. patient is not a good historian but she says that she's had this sob for a while. she denies any PND,orthopnea or chest pain but she reports worsening swelling of the legs along with ' some weight gain. she also says that she had a lesion on the right face which has been going on for a few months but it seems that it's been getting worse recently. she denies any fever or chills. CBC/BMP: 11/10/16 1155 11/11/16 0712 Significant Findings Laboratory Tests Test 11/10/16 11/10/16 11/11/16 11:55 23:56 07:12 Neutrophils (%) (Auto) 78.6 % (16.0-70.0) Monocytes (%) (Auto) 8.7 % (0.0-8.0) Lymphocytes # (Auto) 0.7 TH/MM3 (1.0-4.8) Blood Urea Nitrogen 42 MG/DL (7-18) 52 MG/DL (7-18) Creatinine 1.86 MG/DL 1.81 MG/DL (0.50-1.00) (0.50-1.00) Estimat Glomerular Filtration 31 ML/MIN (>89) 32 ML/MIN (>89) Rate Troponin I 0.26 NG/ML 0.26 NG/ML 0.25 NG/ML (0.02-0.05) (0.02-0.05) (0.02-0.05) B-Type Natriuretic Peptide 607 PG/ML (0-100) Albumin 3.0 GM/DL (3.4-5.0) Imaging Last Impressions Knee X-Ray 11/12/16 0000 Signed Impressions: Service Date/Time: Saturday, November 12, 2016 12:52 - CONCLUSION: Tiny joint effusion. No acute abnormality otherwise. Onel Long Jr., MD Chest X-Ray 11/10/16 1116 Signed Impressions: Service Date/Time: Thursday, November 10, 2016 11:29 - CONCLUSION: Mild cardiomegaly. Onel Long Jr., MD Soft Tissue Ultrasound 11/10/16 0000 Signed Impressions: Service Date/Time: Thursday, November 10, 2016 14:22 - CONCLUSION: 1. Possible small abscess in the right face as described above. Néstor Carrillo MD Maxillofacial CT 11/10/16 0000 Signed Impressions: Service Date/Time: Thursday, November 10, 2016 20:00 - CONCLUSION: There is no significant abscess by CT in spite of the ultrasound findings. Surjit Carrillo MD FACR PE at Discharge GENERAL: This is a well-nourished, well-developed patient, in no apparent distress. CARDIOVASCULAR: Regular rate and regular rhythm without murmurs, gallops, or rubs. RESPIRATORY: Clear to auscultation. Breath sounds equal bilaterally. No wheezes , rales, or rhonchi. GASTROINTESTINAL: Abdomen soft, non-tender, nondistended. Normal, active bowel sounds MUSCULOSKELETAL: Extremities with mild bilateral pedal edema. NEURO: Alert & Oriented x4 to person, place, time, situation. Moves all ext x4 Hospital Course - CHF- acute on chronic diastolic continue IV diuretic and monitor I/O- no LEONARDO-I due to renal insufficiency. -mildly elevated troponin- likely due to CHF and renal insufficiency- denies any chest pain with no ST-T changes on EKG continue aspirin- the cardiac enzymes trend stable- continue BB -abscess of the right face- s/p I/D in ER-culture with MRSA- continue antibiotic- CT of the face with no abscess- facial surgery evaluation appreciated. evaluated by ID and facial surgery- cleared for discharge with po clindamycin and outpatient f/u. -pain to the left knee with decrease in ROM; XR with tiny effusion-otherwise no other acute abnormality. -hypertension; resumed BB- -renal insufficiency - likely chronic - -DVT prophylaxis with SCD's -consulted PT Pt Condition on Discharge: Fair Discharge Disposition: Disch w/ Home Health Serv Discharge Time: <= 30 minutes Discharge Instructions DIET: Follow Instructions for: Heart Healthy Diet Activities you can perform: Regular-No Restrictions Follow up Referrals: Cardiology Dermatology PCP Follow-up Surgical New Medications: Aspirin DR (Aspirin EC) 81 Mg Tabdr 81 MG PO DAILY antiplatelet Days 30 Ref 0 TAB Clindamycin (Clindamycin) 300 Mg Cap 300 MG PO Q6H Infection Days 10 Ref 0 CAP Furosemide (Lasix) 20 Mg Tab 20 MG PO DAILY diuretic #30 Ref 0 TAB Continued Medications: Benzonatate (Tessalon Perles) 100 Mg Cap 200 MG PO TID PRN cough Days 30 CAP Docusate Sodium (Colace 100 Mg Cap) 100 Mg Cap 100 MG PO BID constipation Days 30 CAP Hydrocodone-Acetaminophen 5-325 mg ([place] 5-325 mg) 5 mg/325 mg Tab 1 TAB PO Q6H PRN PAIN #15 TAB Metoprolol Tartrate 25 mg (Metoprolol Tartrate 25 mg) 25 Mg Tab 25 MG PO BID TAB Pantoprazole Sod (Protonix) 40 Mg Tabdr 40 MG PO DAILY TAB Polyethylene Glycol (Miralax 119 Gm Bottle) 119 Gm Powd 17 GM PO DAILY 17 GRAMS = 1 TABLESPOON DISSOLVED IN 4 TO 8 OUNCES OF BEVERAGE PRN constipation #1 BOTTLE Timolol (Betimol) 0.25 % Bella 0.25 % OP DAILY BELLA Discontinued Medications: Hydrocodone/Acetaminophen 7.5 mg/325 mg (Hydrocodone/Acetaminophen 7.5 mg/325 mg ) 1 Tab 1 TAB PO Q4H PRN PAIN #30 Ref 0 TAB Ibuprofen (Motrin 400 mg Tab) 400 Mg Tab 400 MG PO Q6H PRN PAIN #20 TAB Tramadol Hcl (Tramadol Hcl) 50 Mg Tab 50 MG PO Q4H PRN PAIN AND/OR AGITATION #30 Ref 0 TAB Bree Jimenez MD Nov 12, 2016 14:26
[2016-11-12] MEDS: CLINDAMYCIN 150 MG CAP PO SCH ×2 (16:28→21:51)
--- NOTE | 2016-11-12 18:10 | ECHRPT ---
Indication: Heart failure, unspecified CONCLUSIONS Normal left ventricular size. Moderate concentric left ventricular hypertrophy. The left ventricular systolic function is normal with an estimated ejection fraction in the range of 60-65%. The left atrial size is mildly dilated. The right atrial size is mildly dilated. Moderate mitral valve regurgitation. Trace aortic valve regurgitation. Aortic valve sclerosis is present. There is mild tricuspid valve regurgitation. There is estimated mild pulmonary hypertension present (51 mmHg). BP: / HR: Rhythm: Sinus MEASUREMENTS (Male / Female) Normal Values Technical Quality:Good 2D ECHO LV Diastolic Diameter PLAX 4.1 cm 4.2 - 5.9 / 3.9 - 5.3 cm LV Systolic Diameter PLAX 3.0 cm IVS Diastolic Thickness 1.5 cm 0.6 - 1.0 / 0.6 - 0.9 cm LVPW Diastolic Thickness 1.1 cm 0.6 - 1.0 / 0.6 - 0.9 cm LV Relative Wall Thickness 0.6 RV Internal Dim ED PLAX 1.9 cm LA Systolic Diameter LX 4.1 cm 3.0 - 4.0 / 2.7 - 3.8 cm M-MODE AV Cusp Separation MM 1.5 cm DOPPLER AV Peak Velocity 186.0 cm/s AV Peak Gradient 13.8 mmHg LVOT Peak Velocity 71.6 cm/s LVOT Peak Gradient 2.1 mmHg MR Peak Velocity 407.0 cm/s MR Peak Gradient 66.3 mmHg Mitral E Point Velocity 88.4 cm/s Mitral A Point Velocity 41.0 cm/s Mitral E to A Ratio 2.2 LV E' Lateral Velocity 3.6 cm/s Mitral E to LV E' Lateral Ratio 24.4 TR Peak Velocity 338.0 cm/s TR Peak Gradient 45.7 mmHg FINDINGS LEFT VENTRICLE Normal left ventricular size. Moderate concentric left ventricular hypertrophy. The left ventricular systolic function is normal with an estimated ejection fraction in the range of 60-65%. RIGHT VENTRICLE Normal right ventricular size and systolic function. LEFT ATRIUM The left atrial size is mildly dilated. RIGHT ATRIUM The right atrial size is mildly dilated. ATRIAL SEPTUM Normal atrial septal thickness without atrial level shunting by limited color doppler interrogation. AORTA The aortic root and proximal ascending aorta are normal in size on limited imaging. MITRAL VALVE Moderate mitral valve regurgitation. AORTIC VALVE Trace aortic valve regurgitation. Aortic valve sclerosis is present. TRICUSPID VALVE There is mild tricuspid valve regurgitation. There is estimated mild pulmonary hypertension present (51 mmHg). PULMONARY VALVE The pulmonary valve is not well visualized. VESSELS The inferior vena cava is normal in size. PERICARDIUM No pericardial effusion. Tera Omalley MD (Electronically Signed) Final Date:12 November 2016 18:09
[2016-11-13 03:34] VITALS: BP 102/55; PULSE 52; RESP 16; TEMP 97.9; O2SAT 99
[2016-11-13] MEDS: CLINDAMYCIN 150 MG CAP PO SCH ×2 (04:11→09:15)
[2016-11-13 08:06] VITALS: BP 108/55; PULSE 63; RESP 16; TEMP 98; O2SAT 99
[2016-11-13] MEDS: METOPROLOL TARTRATE 25 MG TAB PO SCH (09:00)
[2016-11-13] MEDS: FUROSEMIDE 40 MG/4 ML VIAL IV PUSH SCH (09:15)
[2016-11-13] MEDS: POTASSIUM CHLORIDE 20 MEQ CONTROLLED RELEASE TAB PO SCH (09:15)
[2016-11-13] MEDS: ASPIRIN EC 81 MG TABEC PO SCH (09:15)
[2016-11-13] MEDS: PANTOPRAZOLE SOD 40 MG DELAYED RELEASE TAB PO SCH (09:15)
[2016-11-13] MEDS: MUPIROCIN 2% OINT 22 GM TUBE TOPICAL SCH (09:16)
--- NOTE | 2016-11-13 10:04 | HHI.PR ---
Subjective Remarks resting comfortably with no distress. no chest pain. no fever. Objective Vitals Vital Signs Date Time Temp Pulse Resp B/P Pulse Ox O2 Delivery O2 Flow Rate FiO2 11/13/16 08:06 98.0 63 16 108/55 99 11/13/16 03:34 97.9 52 16 102/55 99 11/12/16 23:58 97.8 63 16 105/57 100 11/12/16 19:46 97.9 59 17 94/55 96 11/12/16 17:08 94/56 11/12/16 15:30 98.9 70 16 96/59 98 11/12/16 11:25 97.8 53 14 118/58 99 I/O 11/12/16 11/12/16 11/12/16 11/13/16 11/13/16 11/13/16 07:00 15:00 23:00 07:00 15:00 23:00 Intake Total 100 ml 928 ml 240 ml Balance 100 ml 928 ml 240 ml Intake Oral 720 ml 240 ml IV Total 100 ml 208 ml # Voids 1 2 3 # Bowel Movements 1 1 Result Diagram: 11/10/16 1155 11/11/16 0712 Imaging Last Impressions Knee X-Ray 11/12/16 0000 Signed Impressions: Service Date/Time: Saturday, November 12, 2016 12:52 - CONCLUSION: Tiny joint effusion. No acute abnormality otherwise. Onel Long Jr., MD Chest X-Ray 11/10/16 1116 Signed Impressions: Service Date/Time: Thursday, November 10, 2016 11:29 - CONCLUSION: Mild cardiomegaly. Onel Long Jr., MD Soft Tissue Ultrasound 11/10/16 0000 Signed Impressions: Service Date/Time: Thursday, November 10, 2016 14:22 - CONCLUSION: 1. Possible small abscess in the right face as described above. Néstor Carrillo MD Maxillofacial CT 11/10/16 0000 Signed Impressions: Service Date/Time: Thursday, November 10, 2016 20:00 - CONCLUSION: There is no significant abscess by CT in spite of the ultrasound findings. Surjit Carrillo MD FACR Objective Remarks GENERAL: This is a well-nourished, well-developed patient, in no apparent distress. CARDIOVASCULAR: Regular rate and regular rhythm without murmurs, gallops, or rubs. RESPIRATORY: Clear to auscultation. Breath sounds equal bilaterally. No wheezes , rales, or rhonchi. GASTROINTESTINAL: Abdomen soft, non-tender, nondistended. Normal, active bowel sounds MUSCULOSKELETAL: Extremities with mild bilateral pedal edema. NEURO: Alert & Oriented x4 to person, place, time, situation. Moves all ext x4 Procedures I/D of the facial lesion Medications and IVs Current Medications Sodium Chloride (NS Flush) 2 ml UNSCH PRN IVF FLUSH AFTER USING IV ACCESS Last administered on 11/12/16 01:51; Start 11/10/16 at 11:30 Ondansetron HCl (Zofran Inj) 4 mg Q8HR PRN IV PUSH NAUSEA; Start 11/10/16 at 14 :00 Acetaminophen (Tylenol) 650 mg Q4H PRN PO FEVER; Start 11/10/16 at 14:00 Trimethoprim/ Sulfamethoxazole (Bactrim Ds 800-160 Mg) 1 tab ONCE ONCE PO Last administered on 11/10/16 14:43; Start 11/10/16 at 14:00; Stop 11/10/16 at 14:04; Status DC Mupirocin (Bactroban 2% Oint) 1 applic Q12HR TOPICAL Last administered on 09:16; Start 11/10/16 at 14:00 Furosemide (Lasix Inj) 40 mg DAILY IV PUSH Last administered on 11/13/16 09:15 ; Start 11/10/16 at 15:00 Potassium Chloride (KCl) 20 meq DAILY PO Last administered on 11/13/16 09:15; Start 11/10/16 at 15:00 Metoprolol Tartrate (Lopressor) 25 mg BID PO Last administered on 11/12/16 09: 55; Start 11/10/16 at 21:00 Pantoprazole Sodium (Protonix) 40 mg DAILY PO Last administered on 11/13/16 09 :15; Start 11/11/16 at 09:00 Patient Own Medication PT OWN MED: DOROTHY... DAILY OTHER ; Start 11/11/16 at 09:00 ; Status Hold Clindamycin HCl (Cleocin) 300 mg Q6HR PO ; Start 11/10/16 at 18:00; Stop at 18:00; Status DC Aspirin 162 mg 162 mg DAILY PO Last administered on 11/13/16 09:15; Start 04/17 at 15:00 Clindamycin Phosphate/Sodium Chloride (Cleocin Inj/NS Inj) 104 ml @ 208 mls/hr Q8H IV Last administered on 11/12/16 10:22; Start 11/10/16 at 18:00; Stop at 11:02; Status DC Clindamycin HCl (Cleocin) 300 mg Q6H PO Last administered on 11/13/16 09:15; Start 11/12/16 at 16:00; Stop 11/22/16 at 15:59 A/P Assessment and Plan A/P - CHF- acute on chronic diastolic continue diuretic and monitor I/O- echo with EF 60%- no LEONARDO-I due to renal insufficiency. -mildly elevated troponin- likely due to CHF and renal insufficiency- denies any chest pain with no ST-T changes on EKG d/w the son who said that he'd rather to have an outpatient f/u with her aircraft avionics technician. continue aspirin- the cardiac enzymes trend stable- continue BB -abscess of the right face- s/p I/D in ER-culture with MRSA- continue antibiotic- CT of the face with no abscess- facial surgery evaluation appreciated. d/w ; recommended ID evaluation- previously d/w ; cleared for discharge with clindamycin and f/u with dermatology. -pain to the left knee with decrease in ROM; XR with no acute abnormality. -hypertension; resumed BB- will monitor -renal insufficiency - likely chronic - will monitor -DVT prophylaxis with SCD's -consulted PT Discharge Planning dc home with [facility] today. see med list. f/u; pcp,facial surgery and dermatology. f/u with cardiology. d/w the patient and Bree Nieves MD Nov 13, 2016 10:04
--- NOTE | 2016-11-17 10:43 | PD.CONS ---
History of Present Illness Service Date of consultation November 12, 2016 Infectious Disease Consult Requested By Dr Jimenez Reason for Consult Evaluate patient with facial lesions Primary Care Physician Non-Staff Diagnoses: History of Present Illness Patient seen and examined November 12, 2016. Records reviewed. Also spoke with son and got more information. Patient is an 86 year olf female, presented to the hospital complaining of SOB and swelling in her legs. She is not a very good historian. She denies any cough or congestion or any chest pain. She also noted some weight gain. Patient also mentioned that she has had lesions on her face and head. The son has mentioned that they had seen a steel plate printer in [place] and has prescribed some topical treatment. The one on her R cheek has gotten worse, and the MD has prescribed some antibiotics previously. She has noted worsening again, as well as the one on her forehead. She denies any fever, chills or sweats. Denies any GI or complaints. She is currently being managed for CHF. [facility] [place] the patient as well. She4 had an abscess on her R cheek which was I and D, and C/S showed MRSA. Since admission she has not had any fevers. Her swelling has improved. The son has mentioned that patient has a follow-up already scheduled with steel plate printer this coming Tuesday when patient returns to [facility] where she lives. Infectious Disease consultation has been requested to assist with her treatment. Review of Systems Constitutional: DENIES: Fever, Chills Eyes: DENIES: Eye pain Ears, nose, mouth, throat: DENIES: Nasal discharge, Oral lesions, Throat pain, Ear Pain Respiratory: COMPLAINS OF: Shortness of breath, DENIES: Cough, Sputum production Cardiovascular: COMPLAINS OF: Dyspnea on Exertion, Lower Extremity Edema, DENIES: Chest pain, Palpitations, Syncope Gastrointestinal: DENIES: Abdominal pain, Diarrhea, Nausea, Vomiting Genitourinary: DENIES: Hematuria, Dysuria Musculoskeletal: DENIES: Joint pain, Joint Swelling Integumentary: COMPLAINS OF: Rash, DENIES: Breast skin changes Hematologic/lymphatic: DENIES: Bruising Neurologic: DENIES: Headache, Localized weakness Psychiatric: DENIES: Confusion, Hallucinations Past Family Social History Allergies: Coded Allergies: Calan (Verified Allergy, Severe, CAN'T RECALL, 11/10/16) *MDRO Multi-Drug Resistant Organism (Verified Adverse Reaction, Unknown, ) MRSA (face), 11/10/16 Past Medical History Hypertension Cataract CHF Past Surgical History Cholecystectomy Hysterectomy Active Ordered Medications Reviewed Antibiotics: IV Clindamycin Family History Non-contributory Social History Ex smoker NO recent ETOH use Denies illicit drug use Physical Exam Physical Exam GENERAL: This is a well-nourished, well-developed female, awake and alert, in no apparent distress. SKIN: No rashes, ecchymoses or lesions. Cool and dry. HEAD: Atraumatic. Normocephalic. No temporal or scalp tenderness. On R side of her scalp is an area with crusting and some tender swelling about size of a shawna, with no drainage, and has mild redness. EYES: [place] conjunctiva. No petechia or hemorrhage. Pupils equal round and reactive. Extraocular motions intact. No scleral icterus. No injection or drainage. ENT: Nose without bleeding, purulent drainage or septal hematoma. Throat without erythema, tonsillar hypertrophy or exudate. Moist mucosa. On her R zygomatic arch there is a tender indurated area with small incision that currently has small bloody drainage, measures about a little over an inch diameter. There is also a crusted superficial wound on her forehead. NECK: Trachea midline. No JVD or lymphadenopathy. Supple, nontender, no meningeal signs. CARDIOVASCULAR: Regular rate and rhythm without murmurs, gallops, or rubs. RESPIRATORY: Clear to auscultation. Breath sounds equal bilaterally. No wheezes , rales, or rhonchi. Decreased at bases GASTROINTESTINAL: Abdomen soft, non-tender, nondistended. Bowel sounds present and normoactive. No hepato-splenomegaly, or palpable masses. No guarding. MUSCULOSKELETAL: Extremities without clubbing, cyanosis. Mild pedal edema. No joint tenderness, effusion, or edema noted. No calf tenderness. Negative Homans sign bilaterally. NEUROLOGICAL: Awake and alert. Cranial nerves II through XII intact. Motor and sensory grossly within normal limits. Normal speech. PSYCH: Normal affect, calm and cooperative Laboratory WBC 7 Hgb 11.9, normal diff Platelet count 186 Sodium 140 Potassium 5 Chloride 105 CO2 28.4 BUN 52 Creatinine 1.81 LFT normal BNP 607 Wound C/S face 11/11 GRAM STAIN Final 11/10/16- 1926 MODERATE WBC'S FEW EPITHELIAL CELLS MODERATE GRAM POSITIVE COCCI IN PAIRS AND CLUSTERS WOUND CULTURE Final 11/12/16 HEAVY GROWTH S. AUREUS MRSA This organism should be considered resistant to other Beta lactam agents, ie, penicillins, Beta-lactam/Beta-lactamase inhibitor combinations, carbapenems, and cephems (with the exception of cephalosporins with anti-MRSA activity). NO ANAEROBES ISOLATED WOUND CULTURE Final (continued) 11/12/16 STAPH MRSA M.I.C. RX --------- --- PENICILLIN G >8 R OXACILLIN >2 R CEFAZOLIN 8 R CEFTRIAXONE 16 R GENTAMICIN <1 S ERYTHROMYCIN >4 R CLINDAMYCIN 0.5 S DAPTOMYCIN 1 S VANCOMYCIN 2 S TETRACYCLINE <1 S CHLORAMPHENICOL <8 S TRIMETH/SULFA <0.5/9.5 S LEVOFLOXACIN <0.5 S LINEZOLID 2 S RIFAMPIN <1 S Imaging CXR mild cardiomegaly CT face - no abscess US face - possible small abscess of face Assessment and Plan Assessment and Plan IMPRESSION R cheek abscess, and cellulitis C/S MRSA Multiple chronic skin lesions, etiology? CHF RECOMMENDATION Patient is clinically stable from ID standpoint I will switch her antibiotics to po and give her Clinda x 10 days She has a follow-up with her steel plate printer and spoke with son to make sure she gets evaluated, and she may need biopsy Patient could also see Dr Glasgow her if she stays local and he can do further work-up in his office. She can be discharge from ID standpoint Thank you for this consultation Discussed Condition With Discussed plan with patient and son D/W Dr Jimenez ([facility]) Iliana Guidry MD Nov 17, 2016 10:43
== END 2016-11-13 11:45 | disposition home or self-care (01) ==
LOC: NEPE 10:40 → NEDH 14:01 → NEPHCDU 16:50
PROVIDERS: ADMIT Internal Medicine; ATTEND Internal Medicine
DX: I11.0 Hypertensive heart disease with heart failure (principal); I50.33 Acute on chronic diastolic (congestive) heart failure; N17.9 Acute kidney failure, unspecified; R74.8 Abnormal levels of other serum enzymes; L02.01 Cutaneous abscess of face; L01.00 Impetigo, unspecified; R00.1 Bradycardia, unspecified; I25.10 Atherosclerotic heart disease of native coronary artery without angina pectoris; E78.5 Hyperlipidemia, unspecified; E78.00 Pure hypercholesterolemia, unspecified; K21.9 Gastro-esophageal reflux disease without esophagitis; F03.90 Unspecified dementia, unspecified severity, without behavioral disturbance, psychotic disturbance, mood disturbance, and anxiety; H40.9 Unspecified glaucoma; M19.90 Unspecified osteoarthritis, unspecified site; Z79.899 Other long term (current) drug therapy; Z87.891 Personal history of nicotine dependence; Z85.3 Personal history of malignant neoplasm of breast
CPT/HCPCS: 10060; 70486; 71010; 73564; 76999; 80048; 80053; 82550; 83735; 83880; 84484; 85025; 85610; 85730; 86403; 87070; 87186; 87205; 93005; 93306; 97162; 99285; G0378; G8987; G8988; J1940

== ENCOUNTER 2017-09-29 00:39 | Inpatient (IN) | payer MEDICARE ==
[~2017-09-29 00:39] MED LIST changes: +ASPI81TA23 PO; +CLIN300C5 PO; +FURO1TAB62 PO; -HYDR-3580 PO; -IBUP400 PO; -TRAM50TA PO
[2017-09-29 00:42] VITALS: BP 159/74; PULSE 88; RESP 16; TEMP 99; O2SAT 99
--- NOTE | 2017-09-29 04:41 | PD ---
HPI Chief Complaint: Altered Mental Status Time Seen by Provider: 02:27 Travel History International Travel<30 days: No Contact w/Intl Traveler<30days: No Traveled to known affect area: No History of Present Illness HPI 86-year-old female presents to the emergency department with paranoid ideation. Patient comments that friends and coworkers and family members are accusing her of behavior but she is unable to describe this behavior who is a members are and when this has occurred. Apparently patient was brought to the emergency department by a neighbor and the neighbor has left. Patient does not report any head pain chest pain shortness of breath fever nausea vomiting upper lower extremity numbness tingling or weakness. Patient states that she has been put on medicine for her legs that are fatty. Patient does not know what medication she was placed on. Patient does not recall her medications. PFSH Past Medical History Narrative Medical Arthritis dyslipidemia dementia pancreatitis cholecystectomy hysterectomy; no tobacco use; nursing notes reviewed Arthritis: Yes Asthma: No Blood Disorders: No Heart Rhythm Problems: No Cancer: Yes Cardiac Catheterization: No Cardiovascular Problems: Yes High Cholesterol: Yes Chemotherapy: No Chest Pain: No Congestive Heart Failure: Yes COPD: No Coronary Artery Disease: Yes Dementia: Yes Diabetes: No Diminished Hearing: No Endocrine: No Gastrointestinal Disorders: Yes GERD: Yes Glaucoma: Yes Genitourinary: No Hepatitis: No Hiatal Hernia: No Hypertension: Yes Immune Disorder: No Medical other: Yes (ARTHRITIS) Musculoskeletal: No Neurologic: No Psychiatric: No Reproductive: No Respiratory: No Immunizations Current: Yes Myocardial Infarction: No Pancreatitis: Yes Radiation Therapy: No Sleep Apnea: No Thyroid Disease: No Menopausal: Yes Past Surgical History Abdominal Surgery: Yes AICD: No Section: Yes Cholecystectomy: Yes Coronary Artery Bypass Graft: No Eye Surgery: Yes (GEETA. CATARACT SX.) Gynecologic Surgery: Yes Hysterectomy: Yes Joint Replacement: Yes (BOTH KNEES) Pacemaker: No Thoracic Surgery: Yes Other Surgery: Yes (LEFT BREAST LUMPECTOMY) Social History Alcohol Use: No Tobacco Use: No Substance Use: No Allergies-Medications (Allergen,Severity, Reaction): Coded Allergies: verapamil (Unverified Allergy, Severe, CAN'T RECALL, 12/14/16) *MDRO Multi-Drug Resistant Organism (Verified Adverse Reaction, Unknown, ) MRSA (face), 11/10/16 Reported Meds & Prescriptions Reported Meds & Active Scripts Active Aspirin EC (Aspirin) 81 Mg Tabdr 81 Mg PO DAILY 30 Days Clindamycin (Clindamycin HCl) 300 Mg Cap 300 Mg PO Q6H 10 Days Lasix (Furosemide) 20 Mg Tab 20 Mg PO DAILY [place] 5-325 mg (Hydrocodone-Acetaminophen 5-325 mg) 5 mg/325 mg Tab 1 Tab PO Q6H PRN Tessalon Perles (Benzonatate) 100 Mg Cap 200 Mg PO TID PRN 30 Days Miralax 119 Gm Bottle (Polyethylene Glycol) 119 Gm Powd 17 Gm PO DAILY PRN 17 GRAMS = 1 TABLESPOON DISSOLVED IN 4 TO 8 OUNCES OF BEVERAGE Colace 100 Mg Cap (Docusate Sodium) 100 Mg Cap 100 Mg PO BID 30 Days Reported Protonix (Pantoprazole Sodium) 40 Mg Tabdr 40 Mg PO DAILY Betimol (Timolol Maleate) 0.25 % Bella 0.25 % OP DAILY Metoprolol Tartrate 25 mg (Metoprolol Tartrate) 25 Mg Tab 25 Mg PO BID Review of Systems ROS Limitations: Poor Historian Except as stated in HPI: all other systems reviewed are Neg General / Constitutional: No: Fever, Chills HENT: No: Congestion Cardiovascular: No: Chest Pain or Discomfort Respiratory: No: Shortness of Breath Gastrointestinal: No: Abdominal Pain Genitourinary: No: Flank Pain Musculoskeletal: No: Weakness Skin: No Rash Neurologic: No: Dizziness Psychiatric: Positive: Disorder of Thought Hematologic/Lymphatic: No: Easy Bruising Physical Exam Narrative GENERAL: Well-developed well-nourished elderly female in no acute respiratory distress appears paranoid and with flight of ideas SKIN: Warm and dry. HEAD: Atraumatic. Normocephalic. EYES: Pupils equal and round. No scleral icterus. No injection or drainage. ENT: No nasal bleeding or discharge. Mucous membranes pink and moist. NECK: Trachea midline. No JVD. CARDIOVASCULAR: Regular rate and rhythm. RESPIRATORY: No accessory muscle use. Clear to auscultation. Breath sounds equal bilaterally. GASTROINTESTINAL: Abdomen soft, non-tender, nondistended. Hepatic and splenic margins not palpable. MUSCULOSKELETAL: Extremities without clubbing, cyanosis, or edema. No obvious deformities. NEUROLOGICAL: Awake and alert. No obvious cranial nerve deficits. Motor grossly within normal limits. Five out of 5 muscle strength in the arms and legs. Normal speech. PSYCHIATRIC: Appropriate mood and affect; poor insight and judgment. Data Data Last Documented VS Vital Signs Date Time Temp Pulse Resp B/P (MAP) Pulse Ox O2 Delivery O2 Flow Rate FiO2 09/29/17 04:26 Room Air 09/29/17 00:42 99.0 88 16 159/74 (102) 99 Orders Orders Complete Blood Count With Diff (09/29/17 02:27) Comprehensive Metabolic Panel (09/29/17 02:27) Thyroid Stimulating Hormone (09/29/17 02:27) Urinalysis - C+S If Indicated (09/29/17 02:27) Electrocardiogram (09/29/17 02:27) Psych Screen (09/29/17 02:27) Drug Screen, Random Urine (09/29/17 02:27) Alcohol (Ethanol) (09/29/17 02:27) Salicylates (Aspirin) (09/29/17 02:27) Tylenol (Acetaminophen) (09/29/17 02:27) Ct Brain W/O Iv Contrast(Rout) (09/29/17 ) Cath For Specimen (09/29/17 06:45) Admit To Inpatient Psych (09/29/17 ) Vital Signs (Adult) KJ.Q12H.E (09/29/17 07:57) Activity Oob Ad Keely (09/29/17 07:57) Lorazepam (Ativan) (09/29/17 08:00) Lorazepam Inj (Ativan Inj) (09/29/17 08:00) Lorazepam (Ativan) (09/29/17 08:00) Lorazepam Inj (Ativan Inj) (09/29/17 08:00) Acetaminophen (Tylenol) (09/29/17 08:00) Magnesium Hydroxide Liq (Milk Of Magnesi (09/29/17 08:00) Al-Mag Hy-Si 40-40-4 Mg/Ml Liq (Mag-Al P (09/29/17 08:00) Nicotine 21 Mg Patch.24 Hr (Habitrol 21 (09/29/17 09:00) Lipid Profile (09/30/17 06:00) Hemoglobin (Hgb) A1c (09/30/17 06:00) Quetiapine (Seroquel) (09/29/17 09:00) Labs Laboratory Tests Test 09/29/17 00:00 09/29/17 04:18 09/29/17 06:00 Urine Opiates Screen NEG Urine Barbiturates Screen NEG Urine Amphetamines Screen NEG Urine Benzodiazepines Screen NEG Urine Cocaine Screen NEG Urine Cannabinoids Screen NEG White Blood Count 3.9 TH/MM3 Red Blood Count 4.45 MIL/MM3 Hemoglobin 12.3 GM/DL Hematocrit 37.5 % Mean Corpuscular Volume 84.2 FL Mean Corpuscular Hemoglobin 27.7 PG Mean Corpuscular Hemoglobin Concent 32.9 % Red Cell Distribution Width 15.1 % Platelet Count 184 TH/MM3 Mean Platelet Volume 8.2 FL Neutrophils (%) (Auto) 73.0 % Lymphocytes (%) (Auto) 15.5 % Monocytes (%) (Auto) 9.1 % Eosinophils (%) (Auto) 1.6 % Basophils (%) (Auto) 0.8 % Neutrophils # (Auto) 2.8 TH/MM3 Lymphocytes # (Auto) 0.6 TH/MM3 Monocytes # (Auto) 0.4 TH/MM3 Eosinophils # (Auto) 0.1 TH/MM3 Basophils # (Auto) 0.0 TH/MM3 CBC Comment DIFF FINAL Differential Comment Salicylates Level LESS THAN 1.7 MG/DL Blood Urea Nitrogen 41 MG/DL Creatinine 1.71 MG/DL Random Glucose 83 MG/DL Total Protein 7.0 GM/DL Albumin 2.9 GM/DL Calcium Level 8.6 MG/DL Alkaline Phosphatase 90 U/L Aspartate Amino Transf (AST/SGOT) 25 U/L Alanine Aminotransferase (ALT/SGPT) 13 U/L Total Bilirubin 0.5 MG/DL Sodium Level 141 MEQ/L Potassium Level 4.2 MEQ/L Chloride Level 104 MEQ/L Carbon Dioxide Level 25.0 MEQ/L Anion Gap 12 MEQ/L Estimat Glomerular Filtration Rate 34 ML/MIN Thyroid Stimulating Hormone 3rd Gen 1.760 uIU/ML Acetaminophen Level LESS THAN 2.0 MCG/ML Ethyl Alcohol Level LESS THAN 3 MG/DL MDM Medical Decision Making Medical Screen Exam Complete: Yes Emergency Medical Condition: Yes Medical Record Reviewed: Yes Interpretation(s) Last Impressions Head CT 09/29/17 0000 Signed Impressions: CONCLUSION: Slight chronic small vessel ischemic and atrophic changes. CBC & BMP Diagram 09/29/17 04:18 09/29/17 06:00 Total Protein 7.0, Albumin 2.9 L, Calcium Level 8.6, Alkaline Phosphatase 90, Aspartate Amino Transf (AST/SGOT) 25, Alanine Aminotransferase (ALT/SGPT) 13, Total Bilirubin 0.5 Vital Signs Date Time Temp Pulse Resp B/P (MAP) Pulse Ox O2 Delivery O2 Flow Rate FiO2 09/29/17 04:26 Room Air 09/29/17 00:42 99.0 88 16 159/74 (102) 99 Differential Diagnosis Altered mental status, paranoia, mood disorder, UTI, TIA, acute psychosis, dementia Narrative Course IV access obtained specimens collected and sent for resulting CT brain noncontrast ordered along with basic labs and psych screening Patient cooperative resting comfortably waiting for labs to be resulted CT brain noncontrast reveals no acute abnormality CBC with automated differential grossly within normal limits except for mild decreased total white cell count of 3900 and renal insufficiency which is slightly improved from last visit At 7 AM urinalysis remains pending many cath specimen has been requested and psych screening remains pending for patient disposition At 7 AM care signed over oncoming physician for follow-up of urinalysis results urine drug screen results and psych screening for disposition Diagnosis Primary Impression: Unspecified psychosis Additional Impression: Dementia Qualified Codes: G30.1 - Alzheimer's disease with late onset; F02.81 - Dementia in other diseases classified elsewhere with behavioral disturbance Kristyn Live MD September 29, 2017 04:41
[2017-09-29 04:52] LABS: AUTOMATED NEUTROPHIL # 2.8 TH/MM3 (1.8-7.7); BASOPHIL % 0.8 % (0.0-2.0); EOSINOPHIL # 0.1 TH/MM3 (0-0.4); EOSINOPHIL % 1.6 % (0.0-4.0); HEMATOCRIT 37.5 % (35.0-46.0); HEMOGLOBIN 12.3 GM/DL (11.6-15.3); LYMPH % 15.5 % (9.0-44.0); LYMPHOCYTE # 0.6 TH/MM3 (1.0-4.8); MEAN CELL VOLUME 84.2 FL (80.0-100.0); MEAN CORPUSCULAR HEMOGLOBIN 27.7 PG (27.0-34.0); MEAN CORPUSCULAR HGB CONC 32.9 % (32.0-36.0); MEAN PLATELET VOLUME 8.2 FL (7.0-11.0); MONO % 9.1 % (0.0-8.0); MONOCYTE # 0.4 TH/MM3 (0-0.9); PLATELET COUNT 184 TH/MM3 (150-450); RED BLOOD COUNT 4.45 MIL/MM3 (4.00-5.30); RED CELL DISTRIBUTION WIDTH 15.1 % (11.6-17.2); WHITE BLOOD COUNT 3.9 TH/MM3 (4.0-11.0)
[2017-09-29 06:33] LABS: ALBUMIN 2.9 GM/DL (3.4-5.0); ALT (GPT) 13 U/L (10-53); AST (GOT) 25 U/L (15-37); BLOOD UREA NITROGEN 41 MG/DL (7-18); CALCIUM 8.6 MG/DL (8.5-10.1); CHLORIDE 104 MEQ/L (98-107); CREATININE 1.71 MG/DL (0.50-1.00); GLOMERULAR FILTRATION RATE 34 ML/MIN (>89); GLUCOSE,RANDOM 83 MG/DL (74-106); SODIUM (NA) 141 MEQ/L (136-145)
[2017-09-29 06:38] LABS: ACETAMINOPHEN LESS THAN 2.0 MCG/ML (10.0-30.0)
[2017-09-29 06:43] LABS: ALKALINE PHOSPHATASE 90 U/L (45-117); TOTAL BILIRUBIN ADULT 0.5 MG/DL (0.2-1.0)
--- NOTE | 2017-09-29 07:01 | RADRPT ---
EXAM DATE: 09/29/2017 6:46 AM EDT AGE/SEX: 86 years / Female INDICATIONS: Altered mental status. CLINICAL DATA: This is the patient's initial encounter. Patient reports that signs and symptoms have been present for 1 day and indicates a pain score of 0/10. MEDICAL/SURGICAL HISTORY: Cardiovascular disease. Hypertension. Carcinoma, breast. Dementia. No ne. RADIATION DOSE: 56.35 CTDI (mGy) COMPARISON: No prior exams available for comparison. TECHNIQUE: CT of the head without contrast. Using automated exposure control and adjustment of the mA and/or kV according to patient size, radiation dose was kept as low as reasonably achievable to ob tain optimal diagnostic quality images. FINDINGS: There is no evidence for intracranial hemorrhage, mass effect, mass lesions, or edema. The visualize d bony structures appear intact. Slight degree of brain atrophy is seen. Slight periventricular whit e matter changes are seen nonspecific mostly consistent with chronic small vessel ischemic changes. There are no signs of acute infarction for technique. CONCLUSION: Slight chronic small vessel ischemic and atrophic changes. Electronically signed by: Virginia Hernandez MD 09/29/2017 7:00 AM EDT
[2017-09-29] MEDS ORDERED: ACETAMINOPHEN 325 MG TAB PO PRN (08:00)
[2017-09-29] MEDS ORDERED: MAGNESIUM HYDROXIDE SUSP 30 ML CUP PO PRN (08:00)
[2017-09-29] MEDS ORDERED: LORazepam 1 MG TAB PO PRN (08:00)
[2017-09-29] MEDS ORDERED: ALUMINUM/MAGNESIUM/SIMETH 30 ML CUP PO PRN (08:00)
[2017-09-29] MEDS ORDERED: LORazepam 0.5 MG TAB PO PRN (08:00)
[2017-09-29] MEDS ORDERED: LORazepam 2 MG/ML VIAL IM PRN ×2 (08:00)
[2017-09-29 08:14] LABS: BACTERIA, URINE RARE /hpf; BILIRUBIN, URINE NEG (NEG); BLOOD, URINE NEG (NEG); GLUCOSE,URINE NEG (NEG); HYALINE CAST, URINE 2 /lpf (RARE); KETONE, URINE NEG (NEG); NITRITE,URINE NEG (NEG); PH, URINE 5.5 (5.0-8.5); SQUAMOUS EPITHELIAL CELL URINE <1 /hpf (0-5); URINE COLOR YELLOW (YELLW/STRAW); URINE LEUKOCYTE ESTERASE MOD (NEG)
[2017-09-29] MEDS ORDERED: PILL SPLITTER OTHER PRN (08:15)
[2017-09-29] MEDS: QUEtiapine FUMARATE 25 MG TAB PO SCH ×2 (09:00→12:00)
[2017-09-29] MEDS ORDERED: NICOTINE 21 MG/24 HR PATCH T-DERMAL SCH (09:00)
[2017-09-29] MEDS: ASPIRIN EC 81 MG TABEC PO SCH (09:00)
[2017-09-29 09:25] VITALS: BP 139/83
--- NOTE | 2017-09-29 09:41 | PD ---
Physical Exam Date Seen by Provider: September 29, 2017 Time Seen by Provider: 07:00 Narrative 86-year-old female who was recently seen by Dr. Live. Patient was signed out to me at change of shift awaiting a urinalysis. The patient presented with paranoid behavior. She appeared psychotic. Urinalysis was pending to rule out urosepsis. Psychiatric screening was also pending. Data Data Last Documented VS Vital Signs Date Time Temp Pulse Resp B/P (MAP) Pulse Ox O2 Delivery O2 Flow Rate FiO2 09/29/17 04:26 Room Air 09/29/17 00:42 99.0 88 16 159/74 (102) 99 Orders Orders Complete Blood Count With Diff (09/29/17 02:27) Comprehensive Metabolic Panel (09/29/17 02:27) Thyroid Stimulating Hormone (09/29/17 02:27) Urinalysis - C+S If Indicated (09/29/17 02:27) Electrocardiogram (09/29/17 02:27) Psych Screen (09/29/17 02:27) Drug Screen, Random Urine (09/29/17 02:27) Alcohol (Ethanol) (09/29/17 02:27) Salicylates (Aspirin) (09/29/17 02:27) Tylenol (Acetaminophen) (09/29/17 02:27) Ct Brain W/O Iv Contrast(Rout) (09/29/17 ) Cath For Specimen (09/29/17 06:45) Admit To Inpatient Psych (09/29/17 ) Vital Signs (Adult) KJ.Q12H.E (09/29/17 07:57) Activity Oob Ad Keely (09/29/17 07:57) Lorazepam (Ativan) (09/29/17 08:00) Lorazepam Inj (Ativan Inj) (09/29/17 08:00) Lorazepam (Ativan) (09/29/17 08:00) Lorazepam Inj (Ativan Inj) (09/29/17 08:00) Acetaminophen (Tylenol) (09/29/17 08:00) Magnesium Hydroxide Liq (Milk Of Magnesi (09/29/17 08:00) Al-Mag Hy-Si 40-40-4 Mg/Ml Liq (Mag-Al P (09/29/17 08:00) Nicotine 21 Mg Patch.24 Hr (Habitrol 21 (09/29/17 09:00) Basic Metabolic Panel (Bmp) (09/30/17 06:00) Lipid Profile (09/30/17 06:00) Hemoglobin (Hgb) A1c (09/30/17 06:00) Quetiapine (Seroquel) (09/29/17 09:00) Labs Laboratory Tests Test 09/29/17 00:00 09/29/17 04:18 09/29/17 06:00 Urine Opiates Screen NEG Urine Barbiturates Screen NEG Urine Amphetamines Screen NEG Urine Benzodiazepines Screen NEG Urine Cocaine Screen NEG Urine Cannabinoids Screen NEG White Blood Count 3.9 TH/MM3 Red Blood Count 4.45 MIL/MM3 Hemoglobin 12.3 GM/DL Hematocrit 37.5 % Mean Corpuscular Volume 84.2 FL Mean Corpuscular Hemoglobin 27.7 PG Mean Corpuscular Hemoglobin Concent 32.9 % Red Cell Distribution Width 15.1 % Platelet Count 184 TH/MM3 Mean Platelet Volume 8.2 FL Neutrophils (%) (Auto) 73.0 % Lymphocytes (%) (Auto) 15.5 % Monocytes (%) (Auto) 9.1 % Eosinophils (%) (Auto) 1.6 % Basophils (%) (Auto) 0.8 % Neutrophils # (Auto) 2.8 TH/MM3 Lymphocytes # (Auto) 0.6 TH/MM3 Monocytes # (Auto) 0.4 TH/MM3 Eosinophils # (Auto) 0.1 TH/MM3 Basophils # (Auto) 0.0 TH/MM3 CBC Comment DIFF FINAL Differential Comment Salicylates Level LESS THAN 1.7 MG/DL Blood Urea Nitrogen 41 MG/DL Creatinine 1.71 MG/DL Random Glucose 83 MG/DL Total Protein 7.0 GM/DL Albumin 2.9 GM/DL Calcium Level 8.6 MG/DL Alkaline Phosphatase 90 U/L Aspartate Amino Transf (AST/SGOT) 25 U/L Alanine Aminotransferase (ALT/SGPT) 13 U/L Total Bilirubin 0.5 MG/DL Sodium Level 141 MEQ/L Potassium Level 4.2 MEQ/L Chloride Level 104 MEQ/L Carbon Dioxide Level 25.0 MEQ/L Anion Gap 12 MEQ/L Estimat Glomerular Filtration Rate 34 ML/MIN Thyroid Stimulating Hormone 3rd Gen 1.760 uIU/ML Acetaminophen Level LESS THAN 2.0 MCG/ML Ethyl Alcohol Level LESS THAN 3 MG/DL [facility] Medical Record Reviewed: Yes Supervised Visit with DOLORES: No Differential Diagnosis Psychosis versus metabolic derangement versus infection Narrative Course 86-year-old female presents with paranoid type behavior. Patient was signed out to me awaiting a urinalysis. Urinalysis shows bacteria in the urine with leukocyte esterase. The patient was already seen and evaluated by Dr. Tovar , psychiatrist. He was made aware of the urine findings. She will be admitted to the psychiatry service. Dr. Tvoar has placed her under a Vazquez act. Diagnosis Primary Impression: Unspecified psychosis Additional Impressions: Mild UTI Chronic kidney injury Admitting Information Admitting Physician Requests: Admit Rishabh Zapata MD September 29, 2017 09:41
[2017-09-29] MEDS: FUROSEMIDE 20 MG TAB PO SCH (12:30)
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
[2017-09-29] MEDS ORDERED: POLYETHYLENE GLYCOL 17 GM PKG PO PRN (14:30)
--- NOTE | 2017-09-29 14:50 | PD.CONS ---
HPI Service [facility] Hospitalists Consult Requested By PSYCHIATRY Reason for Consult MEDICAL MANAGEMENT --CHF AND HYPERTENSION Primary Care Physician Unknown Diagnoses: History of Present Illness PATIENT IS A 86 YEAR OLD FEMALE WHO WAS BROUGHT INTO THE ER FOR ALTERED MENTAL STATUS WE HAVE BEEN ASKED TO SEE REGARDING HISTORY OF CHF AND HYPERTENSION Review of Systems ROS Limitations: Altered Mental Status Psychiatric: COMPLAINS OF: Confusion, Depression Past Family Social History Allergies: Coded Allergies: verapamil (Unverified Allergy, Severe, CAN'T RECALL, 12/14/16) *MDRO Multi-Drug Resistant Organism (Verified Adverse Reaction, Unknown, ) MRSA (face), 11/10/16 Past Medical History GLAUCOMA DEMENTIA CHF HYPERTENSION HYPERLIPIDEMIA CAD PANCREATITIS GERD OSTEOARTHRITIS HX OF UTI BACK PROBLEMS HX MRSA BREAST CANCER HX LUMPECTOMY OSTEOARTHRITIS Past Surgical History BL CATARACTS CHEST SURGERY CHOLECYSTECTOMY LUMPECTOMY FOR BREAST CANCER HYSTERECTOMY JOINT SURGERIES Reported Medications Reported Meds & Active Scripts Active Aspirin EC (Aspirin) 81 Mg Tabdr 81 Mg PO DAILY 30 Days Clindamycin (Clindamycin HCl) 300 Mg Cap 300 Mg PO Q6H 10 Days Lasix (Furosemide) 20 Mg Tab 20 Mg PO DAILY [place] 5-325 mg (Hydrocodone-Acetaminophen 5-325 mg) 5 mg/325 mg Tab 1 Tab PO Q6H PRN Tessalon Perles (Benzonatate) 100 Mg Cap 200 Mg PO TID PRN 30 Days Miralax 119 Gm Bottle (Polyethylene Glycol) 119 Gm Powd 17 Gm PO DAILY PRN 17 GRAMS = 1 TABLESPOON DISSOLVED IN 4 TO 8 OUNCES OF BEVERAGE Colace 100 Mg Cap (Docusate Sodium) 100 Mg Cap 100 Mg PO BID 30 Days Reported Protonix (Pantoprazole Sodium) 40 Mg Tabdr 40 Mg PO DAILY Betimol (Timolol Maleate) 0.25 % Bella 0.25 % OP DAILY Metoprolol Tartrate 25 mg (Metoprolol Tartrate) 25 Mg Tab 25 Mg PO BID Active Ordered Medications Current Medications Lorazepam (Ativan) 1 mg Q6H PRN PO MODERATE TO SEVERE ANXIETY; Start 09/29/17 at 08:00; Stop 09/29/17 at 08:04; Status DC Lorazepam (Ativan Inj) 1 mg Q6H PRN IM MODERATE TO SEVERE ANXIETY; Start at 08:00; Stop 09/29/17 at 08:04; Status DC Lorazepam (Ativan) 0.5 mg Q12H PRN PO MODERATE TO SEVERE ANXIETY; Start at 08:00 Lorazepam (Ativan Inj) 0.5 mg Q12H PRN IM MODERATE TO SEVERE ANXIETY; Start at 08:00 Acetaminophen (Tylenol) 650 mg Q4H PRN PO Pain 1-5 or Temp >101F Last administered on 09/29/17at 13:17; Start 09/29/17 at 08:00 Magnesium Hydroxide (Milk Of Magnesia Liq) 30 ml DAILY PRN PO CONSTIPATION; Start 09/29/17 at 08:00 Al Hydrox/Mg Hydrox/Simethicone (Mag-Al Plus Susp Liq) 30 ml Q6H PRN PO DYSPEPSIA; Start 09/29/17 at 08:00 Nicotine (Habitrol 21 Mg Patch.24 Hr) 1 patch DAILY T-DERMAL ; Start 09/29/17 at 09:00; Stop 09/29/17 at 09:00; Status DC Quetiapine Fumarate (SEROquel) 12.5 mg BID@09,12 PO Last administered on at 12:00; Start 09/29/17 at 09:00 Aspirin (Ecotrin Ec) 81 mg DAILY PO Last administered on 09/29/17at 09:00; Start 09/29/17 at 09:00 Miscellaneous (Pill Splitter) 1 ea UNSCH PRN OTHER SEE LABEL COMMENTS; Start at 08:15 Furosemide (Lasix) 20 mg DAILY PO Last administered on 09/29/17at 12:30; Start 09/29/17 at 12:30 Docusate Sodium (Colace) 100 mg BID PO ; Start 09/29/17 at 21:00 Metoprolol Tartrate (Lopressor) 25 mg BID PO ; Start 09/29/17 at 21:00 Pantoprazole Sodium (Protonix) 40 mg DAILY PO ; Start 09/30/17 at 09:00 Polyethylene Glycol (Miralax) 17 gm DAILY PRN PO constipation; Start 09/29/17 at 14:30 Non-Formulary Medication 0.25 % DAILY OP ; Start 09/30/17 at 09:00; Status UNV Cefuroxime Axetil (Ceftin) 250 mg Q12H PO ; Start 09/29/17 at 15:00 Family History FAM HX CVA AND HYPERTENSION Social History UNKNOWN Physical Exam Vital Signs Vital Signs Date Time Temp Pulse Resp B/P (MAP) Pulse Ox O2 Delivery O2 Flow Rate FiO2 09/29/17 09:25 72 18 139/83 (101) 100 09/29/17 04:26 Room Air 09/29/17 00:42 99.0 88 16 159/74 (102) 99 Physical Exam GENERAL: This is a well-nourished, well-developed patient, in no apparent distress. SKIN: No rashes, ecchymoses or lesions. Cool and dry. HEAD: Atraumatic. Normocephalic. No temporal or scalp tenderness. EYES: Pupils equal round and reactive. Extraocular motions intact. No scleral icterus. No injection or drainage. ENT: Nose without bleeding, purulent drainage or septal hematoma. Throat without erythema, tonsillar hypertrophy or exudate. Uvula midline. Airway patent. NECK: Trachea midline. No JVD or lymphadenopathy. Supple, nontender, no meningeal signs. CARDIOVASCULAR: Regular rate and rhythm without murmurs, gallops, or rubs. RESPIRATORY: Clear to auscultation. Breath sounds equal bilaterally. No wheezes , rales, or rhonchi. GASTROINTESTINAL: Abdomen soft, non-tender, nondistended. No hepato-splenomegaly , or palpable masses. No guarding. MUSCULOSKELETAL: Extremities without clubbing, cyanosis. EDEMA BL LE LEFT WORSE THAN RIGHT No joint tenderness, effusion, or edema noted. No calf tenderness. Negative Homans sign bilaterally. NEUROLOGICAL: Awake and alert. Cranial nerves II through XII intact. Motor and sensory grossly within normal limits. 4 out of 5 muscle strength in all muscle groups. Normal speech. INSIGHT AND JUDGEMENT IS LIMITED MOOD AND BEHAVIOR IS INAPPROPRIATE Laboratory Laboratory Tests Test 09/29/17 00:00 09/29/17 04:18 09/29/17 06:00 09/29/17 08:00 Urine Opiates Screen NEG Urine Barbiturates Screen NEG Urine Amphetamines Screen NEG Urine Benzodiazepines Screen NEG Urine Cocaine Screen NEG Urine Cannabinoids Screen NEG White Blood Count 3.9 Red Blood Count 4.45 Hemoglobin 12.3 Hematocrit 37.5 Mean Corpuscular Volume 84.2 Mean Corpuscular Hemoglobin 27.7 Mean Corpuscular Hemoglobin Concent 32.9 Red Cell Distribution Width 15.1 Platelet Count 184 Mean Platelet Volume 8.2 Neutrophils (%) (Auto) 73.0 Lymphocytes (%) (Auto) 15.5 Monocytes (%) (Auto) 9.1 Eosinophils (%) (Auto) 1.6 Basophils (%) (Auto) 0.8 Neutrophils # (Auto) 2.8 Lymphocytes # (Auto) 0.6 Monocytes # (Auto) 0.4 Eosinophils # (Auto) 0.1 Basophils # (Auto) 0.0 CBC Comment DIFF FINAL Differential Comment Salicylates Level LESS THAN 1.7 Blood Urea Nitrogen 41 Creatinine 1.71 Random Glucose 83 Total Protein 7.0 Albumin 2.9 Calcium Level 8.6 Alkaline Phosphatase 90 Aspartate Amino Transf (AST/SGOT) 25 Alanine Aminotransferase (ALT/SGPT) 13 Total Bilirubin 0.5 Sodium Level 141 Potassium Level 4.2 Chloride Level 104 Carbon Dioxide Level 25.0 Anion Gap 12 Estimat Glomerular Filtration Rate 34 Thyroid Stimulating Hormone 3rd Gen 1.760 Acetaminophen Level LESS THAN 2.0 Ethyl Alcohol Level LESS THAN 3 Urine Color YELLOW Urine Turbidity CLEAR Urine pH 5.5 Urine Specific [place] 1.011 Urine Protein TRACE Urine Glucose (UA) NEG Urine Ketones NEG Urine Occult Blood NEG Urine Nitrite NEG Urine Bilirubin NEG Urine Urobilinogen 2.0 Urine Leukocyte Esterase MOD Urine WBC 5 Urine Squamous Epithelial Cells <1 Urine Bacteria RARE Urine Hyaline Casts 2 Microscopic Urinalysis Comment CATH-CULTURE IND Date/Time Source Procedure Growth Status 09/29/17 08:00 Urine Catheterized Urine Urine Culture Pending Received Result Diagram: 09/29/17 0418 09/29/17 0600 Imaging Last Impressions Head CT 09/29/17 0000 Signed Impressions: CONCLUSION: Slight chronic small vessel ischemic and atrophic changes. Assessment and Plan Assessment and Plan PSYCHIATRIC DISORDER WILL DEFER TO PSYCHIATRY HYPERTENSION RESUME HOME MEDS METOPROLOL CHF BY HX CONTINUE LASIX UTI CONTINUE ON CEFTIN BID HX BREAST CANCER STABLE BL LE SWELLING/EDEMA WILL GET BL LE US DOPPLER-- CONTINUE LASIX OBESITY- WT LOSS RECOMMENDED HYPERLIPIDEMIA STATIN AM LABS Code Status FULL CODE Discussed Condition With RN AND PT Surjit Montes DO September 29, 2017 14:50
[2017-09-29 15:00] VITALS: BP 139/82; PULSE 75; RESP 12; TEMP 95.9
[2017-09-29] MEDS: CEFUROXIME AXETIL 250 MG TAB PO SCH (15:00)
--- NOTE | 2017-09-29 15:11 | EKG ---
Date Performed: 09/29/2017 Time Performed: 04:05:04 PTAGE: 86 years EKG: Sinus rhythm LOW QRS VOLTAGE POSSIBLE ANTERIOR MYOCARDIAL INFARCTION INFERIOR MYOCARDIAL INFARCTION ABNORMAL ECG Since the PREVIOUS TRACING , no significant change noted PREVIOUS TRACIN11/10/2016 11.29 DOCTOR: Corky Barton Interpretating Date/Time 09/29/2017 15:10:54
[2017-09-29] MEDS: DOCUSATE SODIUM 100 MG CAP PO SCH (20:43)
[2017-09-29] MEDS: METOPROLOL TARTRATE 25 MG TAB PO SCH (20:43)
[2017-09-30] MEDS: CEFUROXIME AXETIL 250 MG TAB PO SCH ×2 (03:57→15:08)
[2017-09-30 06:22] VITALS: BP 91/59; PULSE 62; RESP 18; TEMP 98.7
[2017-09-30 08:37] LABS: AUTOMATED NEUTROPHIL # 2.5 TH/MM3 (1.8-7.7); BASOPHIL % 1.1 % (0.0-2.0); EOSINOPHIL # 0.2 TH/MM3 (0-0.4); EOSINOPHIL % 5.1 % (0.0-4.0); HEMATOCRIT 34.6 % (35.0-46.0); HEMOGLOBIN 11.5 GM/DL (11.6-15.3); LYMPH % 14.6 % (9.0-44.0); LYMPHOCYTE # 0.5 TH/MM3 (1.0-4.8); MEAN CELL VOLUME 83.8 FL (80.0-100.0); MEAN CORPUSCULAR HEMOGLOBIN 27.7 PG (27.0-34.0); MEAN CORPUSCULAR HGB CONC 33.1 % (32.0-36.0); MEAN PLATELET VOLUME 8.4 FL (7.0-11.0); MONO % 7.8 % (0.0-8.0); MONOCYTE # 0.3 TH/MM3 (0-0.9); NEUT % 71.4 % (16.0-70.0); PLATELET COUNT 189 TH/MM3 (150-450); RED BLOOD COUNT 4.13 MIL/MM3 (4.00-5.30); RED CELL DISTRIBUTION WIDTH 15.2 % (11.6-17.2); WHITE BLOOD COUNT 3.5 TH/MM3 (4.0-11.0)
[2017-09-30 08:59] LABS: ALBUMIN 2.8 GM/DL (3.4-5.0); AST (GOT) 22 U/L (15-37); BICARBONATE 24.4 MEQ/L (21.0-32.0); BLOOD UREA NITROGEN 41 MG/DL (7-18); CALCIUM 8.6 MG/DL (8.5-10.1); CHLORIDE 105 MEQ/L (98-107); CREATININE 1.65 MG/DL (0.50-1.00); GLOMERULAR FILTRATION RATE 36 ML/MIN (>89); GLUCOSE,RANDOM 75 MG/DL (74-106); MAGNESIUM 2.1 MG/DL (1.5-2.5); SODIUM (NA) 140 MEQ/L (136-145)
[2017-09-30] MEDS ORDERED: TIMOLOL 0.25% OP SCH (09:00)
[2017-09-30] MEDS: METOPROLOL TARTRATE 25 MG TAB PO SCH ×2 (09:00→20:49)
[2017-09-30 09:01] LABS: CHOLESTEROL 192 MG/DL (120-200); TRIGLYCERIDES 61 MG/DL (42-150)
[2017-09-30 09:09] LABS: ALKALINE PHOSPHATASE 83 U/L (45-117); ALT (GPT) 12 U/L (10-53); CHOLESTEROL/ HDL RATIO 3.14 RATIO; FREE T4 1.02 NG/DL (0.76-1.46); LDL CHOLESTEROL 119 MG/DL (0-99); TOTAL BILIRUBIN ADULT 0.8 MG/DL (0.2-1.0); TOTAL PROTEIN 6.7 GM/DL (6.4-8.2)
--- NOTE | 2017-09-30 09:40 | RADRPT ---
EXAM DATE: 09/30/2017 9:34 AM EDT AGE/SEX: 86 years / Female INDICATIONS: Bilateral leg swelling. CLINICAL DATA: This is the patient's initial encounter. Patient reports that signs and symptoms have been present for 2 days and indicates a pain score of 0/10. MEDICAL/SURGICAL HISTORY: Congestive heart failure. Hypercholesterolemia. Pancreatitis. Glau coma. Dementia. Coronary artery disease. HTN. Carcinoma, breast. Arthritis. MRSA. Cholecystectomy. Hysterectomy. section. Cataract surgery. Left breast lumpectomy. Bilateral knee replacemen t. Blood transfusions. COMPARISON: No prior [place] exams available for comparison. No external comparison. TECHNIQUE: Venous ultrasound of both lower extremities was performed from the inguinal ligament to t he proximal calf. Real-time, color Doppler and spectral tracing, compression and augmentation techni ques were used. FINDINGS: Right Leg: There is normal compressibility of the deep venous system from the inguinal region to the proximal calf. No echogenic clot is seen in the lumen of the common femoral, femoral, popliteal, an d posterior tibial veins. There is a normal response of the venous system to proximal and distal aug mentation and respiration. There is diffuse edema. Left Leg: There is normal compressibility of the deep venous system from the inguinal region to the proximal calf. No echogenic clot is seen in the lumen of the common femoral, femoral, popliteal, and posterior tibial veins. There is a normal response of the venous system to proximal and distal augm entation and respiration. There is diffuse edema. CONCLUSION: 1. No evidence of deep venous thrombosis. 2. Diffuse edema. Electronically signed by: Don Lynn MD 09/30/2017 9:38 AM EDT
[2017-09-30] MEDS: PANTOPRAZOLE SOD 40 MG DELAYED RELEASE TAB PO SCH (10:47)
[2017-09-30] MEDS: DOCUSATE SODIUM 100 MG CAP PO SCH ×2 (10:47→20:49)
[2017-09-30] MEDS: ASPIRIN EC 81 MG TABEC PO SCH (10:48)
[2017-09-30] MEDS: FUROSEMIDE 20 MG TAB PO SCH (10:48)
[2017-09-30] MEDS: QUEtiapine FUMARATE 25 MG TAB PO SCH ×2 (10:50→14:16)
--- NOTE | 2017-09-30 11:42 | HHI.PYPN ---
Subjective Remarks Patient initially admitted by Dr. Tovar,'s H&P reviewed and agreed with. He is also ask for health care surrogate/guardian advocate, is also done first opinion petition supporting George bryant. I have finished the initial psychiatric admitting orders from the template, and did make. He did the med reconciliation. Patient seen by me in day room with nurse Liyah, she has a calm pleasantly confused -[place] female who appears about his stated age he has no idea what she did that led to this. She is oriented in all 4 spheres. At this time I agree with Dr. Tovar patient meets criteria for involuntary psychiatric hospitalization thus I will cosign second opinion petition supporting George bryant Review of Systems Except as stated in HPI: all other systems reviewed are Neg Mental Status Examination Appearance: Appropriate Consciousness: Alert Orientation: Person Motor Activity: Normal gait Speech: Unremarkable Language: Adequate Fund of Knowledge: Adequate Attention and Concentration: Adequate Memory: Impaired Mood: Angry Affect: Irritable, Labile Thought Process & Associations: Intact Thought Content: Appropriate Hallucination Type: None Delusion Type: Paranoid Suicidal Ideation: No Suicidal Plan: No Suicidal Intention: No Homicidal Ideation: No Homicidal Plan: No Homicidal Intention: No Insight: Poor Judgment: Poor Results Labs Test 09/30/17 07:33 White Blood Count 3.5 TH/MM3 Red Blood Count 4.13 MIL/MM3 Hemoglobin 11.5 GM/DL Hematocrit 34.6 % Mean Corpuscular Volume 83.8 FL Mean Corpuscular Hemoglobin 27.7 PG Mean Corpuscular Hemoglobin Concent 33.1 % Red Cell Distribution Width 15.2 % Platelet Count 189 TH/MM3 Mean Platelet Volume 8.4 FL Neutrophils (%) (Auto) 71.4 % Lymphocytes (%) (Auto) 14.6 % Monocytes (%) (Auto) 7.8 % Eosinophils (%) (Auto) 5.1 % Basophils (%) (Auto) 1.1 % Neutrophils # (Auto) 2.5 TH/MM3 Lymphocytes # (Auto) 0.5 TH/MM3 Monocytes # (Auto) 0.3 TH/MM3 Eosinophils # (Auto) 0.2 TH/MM3 Basophils # (Auto) 0.0 TH/MM3 CBC Comment DIFF FINAL Differential Comment Blood Urea Nitrogen 41 MG/DL Creatinine 1.65 MG/DL Random Glucose 75 MG/DL Total Protein 6.7 GM/DL Albumin 2.8 GM/DL Calcium Level 8.6 MG/DL Phosphorus Level 3.0 MG/DL Magnesium Level 2.1 MG/DL Alkaline Phosphatase 83 U/L Aspartate Amino Transf (AST/SGOT) 22 U/L Alanine Aminotransferase (ALT/SGPT) 12 U/L Total Bilirubin 0.8 MG/DL Sodium Level 140 MEQ/L Potassium Level 3.9 MEQ/L Chloride Level 105 MEQ/L Carbon Dioxide Level 24.4 MEQ/L Anion Gap 11 MEQ/L Estimat Glomerular Filtration Rate 36 ML/MIN Triglycerides Level 61 MG/DL Cholesterol Level 192 MG/DL LDL Cholesterol 119 MG/DL HDL Cholesterol 61.0 MG/DL Cholesterol/HDL Ratio 3.14 RATIO Free Thyroxine 1.02 NG/DL Thyroid Stimulating Hormone 3rd Gen 1.620 uIU/ML Date/Time Source Procedure Growth Status 09/29/17 08:00 Urine Catheterized Urine Urine Culture Pending Received Vitals/IOs Vital Signs Date Time Temp Pulse Resp B/P (MAP) Pulse Ox O2 Delivery O2 Flow Rate FiO2 09/30/17 06:22 98.7 62 18 91/59 (70) 09/29/17 09:25 100 09/29/17 04:26 Room Air Intake and Output 09/30/17 09/30/17 10/01/17 08:00 16:00 00:00 Intake Total 240 ml Balance 240 ml Assessment & Plan Problem List: (1) Unspecified psychosis ICD Codes: F29 - Unspecified psychosis not due to a substance or known physiological condition Status: Acute (2) Dementia ICD Codes: F03.90 - Dementia Status: Acute Assessment & Plan Estimated LOS: days at this time agree patient meets criteria for involuntary psychiatric hospitalization. We will continue to monitor patient's behavior, we will have hospitalist consult will us along with physical therapy. We will attempt to reach patient's family to get further information concerning this lady Justification for Cont. Inpt. At this time patient would decompensate a place to a lower level of care Discharge Planning We need to confer with patient's family Request HC Surrog/Guard Advoc?: Yes Problem Qualifiers (1) Dementia: Qualified Codes: G30.1 - Alzheimer's disease with late onset; F02.81 - Dementia in other diseases classified elsewhere with behavioral disturbance Hector Bradford MD Sep 30, 2017 11:42
--- NOTE | 2017-09-30 13:56 | HHI.PR ---
Subjective Remarks PATIENT IS A 86 YEAR OLD FEMALE WHO WAS BROUGHT INTO THE ER FOR ALTERED MENTAL STATUS WE HAVE BEEN ASKED TO SEE REGARDING HISTORY OF CHF AND HYPERTENSION 6-1 HAD US OF BL LE NEGATIVE FOR DVTS NO NEW COMPLAINTS DW RN AND PT Objective Vitals Vital Signs Date Time Temp Pulse Resp B/P (MAP) Pulse Ox O2 Delivery O2 Flow Rate FiO2 09/30/17 06:22 98.7 62 18 91/59 (70) 09/29/17 15:00 95.9 75 12 139/82 (101) I/O 09/29/17 09/29/17 09/29/17 09/30/17 09/30/17 09/30/17 07:00 15:00 23:00 07:00 15:00 23:00 Intake Total 360 ml Balance 360 ml Intake Oral 360 ml # Voids 1 1 Result Diagram: 09/30/17 0733 09/30/17 0733 Other Results Laboratory Tests Test 09/29/17 00:00 09/29/17 04:18 09/29/17 06:00 09/29/17 08:00 Urine Opiates Screen NEG Urine Barbiturates Screen NEG Urine Amphetamines Screen NEG Urine Benzodiazepines Screen NEG Urine Cocaine Screen NEG Urine Cannabinoids Screen NEG White Blood Count 3.9 TH/MM3 Red Blood Count 4.45 MIL/MM3 Hemoglobin 12.3 GM/DL Hematocrit 37.5 % Mean Corpuscular Volume 84.2 FL Mean Corpuscular Hemoglobin 27.7 PG Mean Corpuscular Hemoglobin Concent 32.9 % Red Cell Distribution Width 15.1 % Platelet Count 184 TH/MM3 Mean Platelet Volume 8.2 FL Neutrophils (%) (Auto) 73.0 % Lymphocytes (%) (Auto) 15.5 % Monocytes (%) (Auto) 9.1 % Eosinophils (%) (Auto) 1.6 % Basophils (%) (Auto) 0.8 % Neutrophils # (Auto) 2.8 TH/MM3 Lymphocytes # (Auto) 0.6 TH/MM3 Monocytes # (Auto) 0.4 TH/MM3 Eosinophils # (Auto) 0.1 TH/MM3 Basophils # (Auto) 0.0 TH/MM3 CBC Comment DIFF FINAL Differential Comment Salicylates Level LESS THAN 1.7 MG/DL Blood Urea Nitrogen 41 MG/DL Creatinine 1.71 MG/DL Random Glucose 83 MG/DL Total Protein 7.0 GM/DL Albumin 2.9 GM/DL Calcium Level 8.6 MG/DL Alkaline Phosphatase 90 U/L Aspartate Amino Transf (AST/SGOT) 25 U/L Alanine Aminotransferase (ALT/SGPT) 13 U/L Total Bilirubin 0.5 MG/DL Sodium Level 141 MEQ/L Potassium Level 4.2 MEQ/L Chloride Level 104 MEQ/L Carbon Dioxide Level 25.0 MEQ/L Anion Gap 12 MEQ/L Estimat Glomerular Filtration Rate 34 ML/MIN Thyroid Stimulating Hormone 3rd Gen 1.760 uIU/ML Acetaminophen Level LESS THAN 2.0 MCG/ML Ethyl Alcohol Level LESS THAN 3 MG/DL Urine Color YELLOW Urine Turbidity CLEAR Urine pH 5.5 Urine Specific [place] 1.011 Urine Protein TRACE mg/dL Urine Glucose (UA) NEG mg/dL Urine Ketones NEG mg/dL Urine Occult Blood NEG Urine Nitrite NEG Urine Bilirubin NEG Urine Urobilinogen 2.0 MG/DL Urine Leukocyte Esterase MOD Urine WBC 5 /hpf Urine Squamous Epithelial Cells <1 /hpf Urine Bacteria RARE /hpf Urine Hyaline Casts 2 /lpf Microscopic Urinalysis Comment CATH-CULTURE IND Test 09/30/17 07:33 White Blood Count 3.5 TH/MM3 Red Blood Count 4.13 MIL/MM3 Hemoglobin 11.5 GM/DL Hematocrit 34.6 % Mean Corpuscular Volume 83.8 FL Mean Corpuscular Hemoglobin 27.7 PG Mean Corpuscular Hemoglobin Concent 33.1 % Red Cell Distribution Width 15.2 % Platelet Count 189 TH/MM3 Mean Platelet Volume 8.4 FL Neutrophils (%) (Auto) 71.4 % Lymphocytes (%) (Auto) 14.6 % Monocytes (%) (Auto) 7.8 % Eosinophils (%) (Auto) 5.1 % Basophils (%) (Auto) 1.1 % Neutrophils # (Auto) 2.5 TH/MM3 Lymphocytes # (Auto) 0.5 TH/MM3 Monocytes # (Auto) 0.3 TH/MM3 Eosinophils # (Auto) 0.2 TH/MM3 Basophils # (Auto) 0.0 TH/MM3 CBC Comment DIFF FINAL Differential Comment Blood Urea Nitrogen 41 MG/DL Creatinine 1.65 MG/DL Random Glucose 75 MG/DL Total Protein 6.7 GM/DL Albumin 2.8 GM/DL Calcium Level 8.6 MG/DL Phosphorus Level 3.0 MG/DL Magnesium Level 2.1 MG/DL Alkaline Phosphatase 83 U/L Aspartate Amino Transf (AST/SGOT) 22 U/L Alanine Aminotransferase (ALT/SGPT) 12 U/L Total Bilirubin 0.8 MG/DL Sodium Level 140 MEQ/L Potassium Level 3.9 MEQ/L Chloride Level 105 MEQ/L Carbon Dioxide Level 24.4 MEQ/L Anion Gap 11 MEQ/L Estimat Glomerular Filtration Rate 36 ML/MIN Triglycerides Level 61 MG/DL Cholesterol Level 192 MG/DL LDL Cholesterol 119 MG/DL HDL Cholesterol 61.0 MG/DL Cholesterol/HDL Ratio 3.14 RATIO Free Thyroxine 1.02 NG/DL Thyroid Stimulating Hormone 3rd Gen 1.620 uIU/ML Imaging Last Impressions Lower Extremity Ultrasound 09/30/17 0000 Signed Impressions: CONCLUSION: 1. No evidence of deep venous thrombosis. 2. Diffuse edema. Head CT 09/29/17 0000 Signed Impressions: CONCLUSION: Slight chronic small vessel ischemic and atrophic changes. Objective Remarks GENERAL: Awake alert and oriented times person not place or time or year or president SKIN: Warm and dry. HEAD: Atraumatic. Normocephalic. EYES: Pupils equal and round. No scleral icterus. No injection or drainage. ENT: No nasal bleeding or discharge. Mucous membranes pink and moist. NECK: Trachea midline. No JVD. CARDIOVASCULAR: Regular rate and rhythm. S1-S2 no S3 or S4 RESPIRATORY: No accessory muscle use. Clear to auscultation. Breath sounds equal bilaterally. GASTROINTESTINAL: Abdomen soft, non-tender, nondistended. Hepatic and splenic margins not palpable. MUSCULOSKELETAL: Extremities without clubbing, cyanosis, No obvious deformities. +1 lower extremity edema chronic NEUROLOGICAL: Awake and alert. No obvious cranial nerve deficits. Motor grossly within normal limits. 4 out of 5 muscle strength in the arms and legs. Normal speech. PSYCHIATRIC: INAppropriate mood and affect; insight and judgment ABnormal. Procedures NONE Medications and IVs Current Medications Lorazepam (Ativan) 1 mg Q6H PRN PO MODERATE TO SEVERE ANXIETY; Start 09/29/17 at 08:00; Stop 09/29/17 at 08:04; Status DC Lorazepam (Ativan Inj) 1 mg Q6H PRN IM MODERATE TO SEVERE ANXIETY; Start at 08:00; Stop 09/29/17 at 08:04; Status DC Lorazepam (Ativan) 0.5 mg Q12H PRN PO MODERATE TO SEVERE ANXIETY; Start at 08:00 Lorazepam (Ativan Inj) 0.5 mg Q12H PRN IM MODERATE TO SEVERE ANXIETY; Start at 08:00 Acetaminophen (Tylenol) 650 mg Q4H PRN PO Pain 1-5 or Temp >101F Last administered on 09/29/17at 13:17; Start 09/29/17 at 08:00 Magnesium Hydroxide (Milk Of Magnesia Liq) 30 ml DAILY PRN PO CONSTIPATION; Start 09/29/17 at 08:00 Al Hydrox/Mg Hydrox/Simethicone (Mag-Al Plus Susp Liq) 30 ml Q6H PRN PO DYSPEPSIA; Start 09/29/17 at 08:00 Nicotine (Habitrol 21 Mg Patch.24 Hr) 1 patch DAILY T-DERMAL ; Start 09/29/17 at 09:00; Stop 09/29/17 at 09:00; Status DC Quetiapine Fumarate (SEROquel) 12.5 mg BID@09,12 PO Last administered on at 10:50; Start 09/29/17 at 09:00 Aspirin (Ecotrin Ec) 81 mg DAILY PO Last administered on 09/30/17at 10:48; Start 09/29/17 at 09:00 Miscellaneous (Pill Splitter) 1 ea UNSCH PRN OTHER SEE LABEL COMMENTS; Start at 08:15 Furosemide (Lasix) 20 mg DAILY PO Last administered on 09/30/17at 10:48; Start at 12:30 Docusate Sodium (Colace) 100 mg BID PO Last administered on 09/30/17at 10:47; Start 09/29/17 at 21:00 Metoprolol Tartrate (Lopressor) 25 mg BID PO Last administered on 09/29/17at 20: 43; Start 09/29/17 at 21:00 Pantoprazole Sodium (Protonix) 40 mg DAILY PO Last administered on 09/30/17at 10: 47; Start 09/30/17 at 09:00 Polyethylene Glycol (Miralax) 17 gm DAILY PRN PO constipation; Start 09/29/17 at 14:30 Non-Formulary Medication 0.25 % DAILY OP ; Start 09/30/17 at 09:00; Status UNV Cefuroxime Axetil (Ceftin) 250 mg Q12H PO Last administered on 09/30/17at 03:57; Start 09/29/17 at 15:00 A/P Assessment and Plan PSYCHIATRIC DISORDER WILL DEFER TO PSYCHIATRY HYPERTENSION RESUME HOME MEDS METOPROLOL CHF BY HX CONTINUE LASIX UTI CONTINUE ON CEFTIN BID HX BREAST CANCER STABLE BL LE SWELLING/EDEMA WILL GET BL LE US DOPPLER-- CONTINUE LASIX OBESITY- WT LOSS RECOMMENDED HYPERLIPIDEMIA STATIN Discharge Planning PENDING PSYCH CLEARANCE Surjit Montes DO Sep 30, 2017 13:56
[2017-09-30] MEDS: TIMOLOL MALEATE 0.25% OPHT SOLN 5 ML BTL EACH EYE SCH (16:00)
[2017-09-30 16:48] LABS: HEMOGLOBIN A1C 4.6 % (4.3-6.0)
[2017-09-30 17:31] VITALS: BP 125/61; PULSE 80; RESP 16; TEMP 97.4; O2SAT 96
[2017-10-01] MEDS: CEFUROXIME AXETIL 250 MG TAB PO SCH ×2 (04:22→15:43)
[2017-10-01 06:24] VITALS: BP 130/76; PULSE 56; RESP 16; TEMP 97.7; O2SAT 94
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
[2017-10-01] MEDS: ASPIRIN EC 81 MG TABEC PO SCH (10:19)
[2017-10-01] MEDS: METOPROLOL TARTRATE 25 MG TAB PO SCH ×2 (10:19→21:29)
[2017-10-01] MEDS: FUROSEMIDE 20 MG TAB PO SCH (10:19)
[2017-10-01] MEDS: PANTOPRAZOLE SOD 40 MG DELAYED RELEASE TAB PO SCH (10:20)
[2017-10-01] MEDS: DOCUSATE SODIUM 100 MG CAP PO SCH ×2 (10:20→21:29)
[2017-10-01] MEDS: QUEtiapine FUMARATE 25 MG TAB PO SCH ×2 (10:21→13:29)
--- NOTE | 2017-10-01 11:46 | HHI.PR ---
Subjective Remarks Follow-up visit for hypertension, UTI, CHF. Spoke with nurse reports patient will likely be discharged tomorrow once appropriate arrangements are made. Patient is seen and examined sitting up in chair in no acute distress. She is awake, alert, oriented to self with some confusion, nurse reports this is about her baseline. She denies any fevers, chills, nausea, vomiting, diarrhea, headaches, dizziness or dysuria. She voices no other acute concerns or complaints at the moment. Objective Vitals Vital Signs Date Time Temp Pulse Resp B/P (MAP) Pulse Ox O2 Delivery O2 Flow Rate FiO2 10/01/17 06:24 97.7 56 16 130/76 (94) 94 09/30/17 17:31 97.4 80 16 125/61 (82) 96 I/O 09/30/17 09/30/17 09/30/17 10/01/17 10/01/17 10/01/17 07:00 15:00 23:00 07:00 15:00 23:00 Intake Total 360 ml 240 ml 0 ml 120 ml Balance 360 ml 240 ml 0 ml 120 ml Intake Oral 360 ml 240 ml 0 ml 120 ml # Voids 1 1 # Bowel Movements 0 Result Diagram: 09/30/17 0733 09/30/17 0733 Imaging Last Impressions Lower Extremity Ultrasound 09/30/17 0000 Signed Impressions: CONCLUSION: 1. No evidence of deep venous thrombosis. 2. Diffuse edema. Head CT 09/29/17 0000 Signed Impressions: CONCLUSION: Slight chronic small vessel ischemic and atrophic changes. Objective Remarks GENERAL: Elderly -La[place] female in no acute distress. SKIN: Warm and dry. HEAD: Atraumatic. EYES: Pupils equal and round. No scleral icterus. No injection or drainage. ENT: No nasal bleeding or discharge. Mucous membranes pink and moist. NECK: Trachea midline. CARDIOVASCULAR: Regular rate and rhythm. S1-S2. RESPIRATORY: Clear to auscultation. Breath sounds equal bilaterally. GASTROINTESTINAL: Abdomen soft, non-tender, nondistended. MUSCULOSKELETAL: Extremities without clubbing, cyanosis, No obvious deformities. Bilateral lower extremity edema trace. NEUROLOGICAL: Awake and alert. No obvious cranial nerve deficits. Motor grossly within normal limits. 4 out of 5 muscle strength in the arms and legs. Normal speech. Procedures NONE A/P Assessment and Plan Dementia -Treatment per psychiatry, planning for discharge possibly tomorrow. Hypertension, stable Hx CHF with leg edema -Continue metoprolol -Continue p.o. Lasix, leg edema is not trace. -Leg ultrasound negative for DVT Urinary tract infection-E. coli (sensitive to Ceftin) -Continue p.o. Ceftin, and date for Ceftin placed. -Patient afebrile and asymptomatic DVT prophylaxis-ambulation Discussed with nursing staff. Patient will most likely be discharged tomorrow. Eduardo Perez Oct 01, 2017 11:46
[2017-10-01] MEDS: TIMOLOL MALEATE 0.25% OPHT SOLN 5 ML BTL EACH EYE SCH (16:30)
[2017-10-01 17:52] VITALS: BP 132/70; PULSE 64; RESP 18; TEMP 98.4; O2SAT 96
[2017-10-02] MEDS: CEFUROXIME AXETIL 250 MG TAB PO SCH (04:45)
[2017-10-02 06:08] VITALS: BP 133/66; PULSE 54; RESP 18; TEMP 98.1; O2SAT 94
[2017-10-02] MEDS: DOCUSATE SODIUM 100 MG CAP PO SCH (09:45)
[2017-10-02] MEDS: PANTOPRAZOLE SOD 40 MG DELAYED RELEASE TAB PO SCH (09:45)
[2017-10-02] MEDS: METOPROLOL TARTRATE 25 MG TAB PO SCH (09:45)
[2017-10-02] MEDS: ASPIRIN EC 81 MG TABEC PO SCH (09:45)
[2017-10-02] MEDS: FUROSEMIDE 20 MG TAB PO SCH (09:45)
[2017-10-02] MEDS: QUEtiapine FUMARATE 25 MG TAB PO SCH (09:46)
[2017-10-02] MEDS: TIMOLOL MALEATE 0.25% OPHT SOLN 5 ML BTL EACH EYE SCH (09:52)
== END 2017-10-02 10:30 | disposition home or self-care (01) | DRG 884 ==
LOC: NEPC 00:39 → NEDA 07:59 → H250 09:40
PROVIDERS: ADMIT Psychiatry & Neurology Psychiatry; ATTEND Psychiatry & Neurology Psychiatry
DX: F03.91 Unspecified dementia, unspecified severity, with behavioral disturbance (principal); I50.9 Heart failure, unspecified; I11.0 Hypertensive heart disease with heart failure; N39.0 Urinary tract infection, site not specified; F29 Unspecified psychosis not due to a substance or known physiological condition; I25.10 Atherosclerotic heart disease of native coronary artery without angina pectoris; K21.9 Gastro-esophageal reflux disease without esophagitis; E78.5 Hyperlipidemia, unspecified; E66.9 Obesity, unspecified; B96.20 Unspecified Escherichia coli [E. coli] as the cause of diseases classified elsewhere; M19.90 Unspecified osteoarthritis, unspecified site; Z79.2 Long term (current) use of antibiotics; Z79.82 Long term (current) use of aspirin; Z79.891 Long term (current) use of opiate analgesic; Z79.899 Other long term (current) drug therapy; Z85.3 Personal history of malignant neoplasm of breast
CPT/HCPCS: 70450; 80053; 80061; 80307; 81001; 83036; 83735; 84100; 84439; 84443; 85025; 87077; 87086; 87186; 93005; 93970